=== PATIENT | male | born 1955 ===

== ENCOUNTER 2016-12-09 07:53 | Inpatient (IN) | payer OTHER ==
[2016-11-27 08:41] VITALS: BMI 29.5
[2016-12-09] MEDS ORDERED: Bacitracin 50,000 UNIT in Sodium Chloride 0.9% Irrig 1,000 ML IR SCH (08:20)
[2016-12-09] MEDS ORDERED: ceFAZolin IV 1 gm in Dextrose 0 GM/0 ML BAG IVPB ONE (08:26)
[2016-12-09] MEDS ORDERED: Absorbable Gelatin Sponge Size 100 ONE (08:26)
[2016-12-09] MEDS ORDERED: Bupivacaine-Epi 0.5%-1:200,000 PF Inj ONE ×2 (08:27→14:35)
[2016-12-09] MEDS ORDERED: Thrombin Topical 5,000 IU Spray Kit ONE (08:28)
[2016-12-09] MEDS ORDERED: Propofol 10 mg/ml 1,000 MG/100 ML VIAL ONE ×3 (08:45→12:07)
[2016-12-09] MEDS ORDERED: Remifentanil 1 mg/3 ml Vial IV ONE (08:45)
[2016-12-09] MEDS ORDERED: Midazolam 2 MG/2 ML VIAL ONE (09:04)
[2016-12-09] MEDS ORDERED: Propofol 10 mg/ml Inj (20 ML) ONE ×4 (09:05→13:51)
[2016-12-09] MEDS ORDERED: ePHEDrine 50 mg/ml Inj ONE (09:08)
[2016-12-09] MEDS ORDERED: Succinylcholine Chloride 20 mg/ml Syr (5 ml) IV ONE (09:11)
[2016-12-09] MEDS ORDERED: Lidocaine 4% (Laryng-O-Jet) Kit MM ONE (09:11)
[2016-12-09] MEDS ORDERED: ceFAZolin IV 2 gm in Dextrose 1 GM/50 ML BAG IVPB ONE ×3 (09:34→16:12)
[2016-12-09] MEDS ORDERED: Bupivacaine Liposomal Inj 20 ml INFIL ONE (10:31)
[2016-12-09] MEDS: Vancomycin 1 g Inj ONE ×2 (10:50→14:25)
[2016-12-09 12:34] LABS: HEMATOCRIT 41.4 % (35.0-51.0); MEAN CELL VOLUME 77.8 fL (80.0-94.0); MEAN CORPUSCULAR HEMOGLOBIN 24.8 pg (27.0-31.0); MEAN CORPUSCULAR HGB CONC 31.9 g/dL (33.0-37.0); RED CELL DISTRIBUTION WIDTH 16.7 % (11.5-14.5)
[2016-12-09 12:35] LABS: BASO % 0.5 % (0.0-2.0); EOS % 6.4 % (0.0-4.0); LYMPH % 46.8 % (20.0-40.0); MONO % 3.2 % (0.0-10.0); NRBC % 2.6 % (0.0-2.0)
[2016-12-09 12:36] LABS: EOS # 0.4 K/uL (0.0-0.7); LYMPH # 2.8 K/uL (1.0-4.3); MONO # 0.2 K/uL (0.0-0.8)
[2016-12-09] MEDS ORDERED: HYDROmorphone 0.5 mg/0.5 ml ISec IVP PRN (12:40)
[2016-12-09] MEDS ORDERED: Lactated Ringer's 1,000 ML IV ONE ×2 (13:10→16:30)
[2016-12-09] MEDS ORDERED: Sodium Chloride 0.9% 20 ML IV ONE (14:24)
[2016-12-09] MEDS ORDERED: Bacitracin Ointment 30 GM TUBE ONE (14:37)
[2016-12-09] MEDS ORDERED: Labetalol 25mg/5ml Syringe ONE (14:55)
[2016-12-09] MEDS ORDERED: Naloxone 0.4 mg/ml Inj (Adult) IVP PRN (15:49)
[2016-12-09] MEDS: HYDROmorphone 0.5 mg/0.5 ml ISec IVP PRN ×2 (16:39→16:51)
[2016-12-09] MEDS ORDERED: HYDROmorphone 0.5 mg/0.5 ml ISec IVP ONE (17:06)
--- NOTE | 2016-12-09 17:10 | RAD ---
PROCEDURE: Fluoroscopy up to 1 hr. HISTORY: DISC DISORDER COMPARISON: None TECHNIQUE: Standard protocol for this study/examination. FINDINGS: Total fluoroscopic time (continuous mode) utilized during the procedure: 95.4 seconds. Submitted images from the current procedure: 5.0 IMPRESSION: Less than 1 hr fluoroscopic time utilized during performance of the procedure.
--- NOTE | 2016-12-09 17:12 | CP.PCM.CON ---
<Tonya Cool - Last Filed: 12/09/16 17:04> History of Present Illness - History of Present Illness History of Present Illness: Patient is a 61 year old male s/p L4-S1 fusion for herniated disks L4- L5 with medical history significant for herniated disks hypertension, diabetes mellitus type II, and hypothyroidism. Medicine team consulted for management of diabetes and hypertension per neurosurgeon, Dr. Page. Patient currently in PACU. Review of systems unable to be obtained as patient under the effects of anesthesia. Proper review of systems to be obtained tomorrow. Vitals are currently stable. Home medications were reviewed and plan to restart anti- hypertensive agents. Plan to hold Metformin as patient is still NPO but will start on sliding scale. Former PMD: Dr. Juanpablo Issa ([phone]) Review of Systems - Review of Systems Review of Systems: Unable to be obtained as patient under anesthesia Past Patient History - Past Medical History & Family History Past Medical History?: Yes - Past Social History Smoking Status: Never Smoked - CARDIAC Hx Cardiac Disorders: Yes Hx Hypertension: Yes - HEENT Hx HEENT Problems: Yes Hx Cataracts: Yes - ENDOCRINE/METABOLIC Hx Endocrine Disorders: Yes Hx Diabetes Mellitus Type 2: Yes Hx Hypothyroidism: Yes - MUSCULOSKELETAL/RHEUMATOLOGICAL Hx Musculoskeletal Disorders: Yes Hx Herniated Disk: Yes - SURGICAL HISTORY Hx Surgeries: Yes Hx Cataract Extraction: Yes Other/Comment: right shoulder unspecified - ANESTHESIA Hx Anesthesia: Yes Hx Anesthesia Reactions: No Hx Malignant Hyperthermia: No Has any member of the family had a problem w/ anesthesia?: No Meds Allergies/Adverse Reactions: Allergies Allergy/AdvReac Type Severity Reaction Status Date / Time acetaminophen Allergy RASH Verified 11/27/16 08:42 - Medications Medications: Current Medications Bacitracin (Bacitracin) 0 gm TOP BID CHRI[facility]IANO Hydromorphone HCl (Dilaudid) 0.5 mg IVP Q5M PRN PRN Reason: Pain, moderate (4-7) Last Admin: 12/09/16 16:51 Dose: 0.5 mg Hydromorphone HCl (Dilaudid) 6 mg IVP Q4H PRN; Protocol PRN Reason: Pain, moderate (4-7) Lactated Ringer's (Lactated Ringer's) 1,000 mls @ 125 mls/hr IV .Q8H [facility] Potassium Chloride/Dextrose/Sod Cl (Potassium Chl 20 Meq In D5-1/2ns) 1,000 mls @ 100 mls/hr IV .Q10H [facility] Naloxone HCl (Narcan) 0.1 mg IVP Q2M PRN PRN Reason: Opiate reversal Stop: 12/09/16 18:00 Physical Exam - Constitutional Appears: Non-toxic, No Acute Distress Additional comments: resting comfortably, under anesthesia - Head Exam Head Exam: ATRAUMATIC, NORMAL INSPECTION - ENT Exam ENT Exam: Mucous Membranes Moist - Neck Exam Neck exam: Positive for: Normal Inspection - Respiratory Exam Additional comments: difficult to auscultate as patient is groaning. Appears to be clear to auscultation. - Cardiovascular Exam Cardiovascular Exam: +S1, +S2 - GI/Abdominal Exam GI & Abdominal Exam: Soft - Extremities Exam Extremities exam: Positive for: normal inspection. Negative for: pedal edema - Psychiatric Exam Additional comments: under anesthesia - Skin Skin Exam: Intact, Normal Color Results - Vital Signs Recent Vital Signs: Last Vital Signs Temp 96.5 F L 12/09/16 15:56 Pulse 78 12/09/16 16:26 Resp 10 L 12/09/16 16:26 BP 155/88 H 12/09/16 16:26 Pulse Ox 98 12/09/16 16:26 - Labs Result Diagrams: 12/09/16 11:41 Labs: Laboratory Results - last 24 hr 12/09/16 12/09/16 08:40 11:41 WBC 6.0 RBC 5.32 Hgb 13.2 Hct 41.4 MCV 77.8 L MCH 24.8 L MCHC 31.9 L RDW 16.7 H Plt Count 36 L MPV 7.0 L Neut % (Auto) 43.1 L Lymph % (Auto) 46.8 H [place] % (Auto) 3.2 Eos % (Auto) 6.4 H Baso % (Auto) 0.5 Neut # 2.6 Lymph # 2.8 [place] # 0.2 Eos # 0.4 Baso # 0.0 Blood Type O POSITIVE Antibody Screen Negative Assessment & Plan - Assessment and Plan (Free Text) Assessment: s/p L4-S1 fusion Management per neurosurgeon, Dr. Page Diabetes Mellitus Type II Will hold Metformin Start Insulin Sliding Scale Accuchecks f/u hemoglobin a1c Hypertension Currently normotensive Continue home medications: Lisinopril 20 mg po daily Hydralazine 25 mg po daily Atenolol 50 mg po daily f/u Lipid Panel Hypothyroidism Continue home medication Levothyroxine 75 mcg po daily f/u TSH, free T4 Thrombocytopenia Platelets 36 f/u CBC with differential, Manual platelet count, and peripheral blood smear Hold Anticoagulation Microcytic Anemia likely Iron deficient anemia f/u iron studies Prophylaxis SCDS - Date & Time Date: 12/09/16 Time: 17:19 <Burke Maldonado - Last Filed: 12/10/16 09:46> Meds - Medications Medications: Current Medications Atenolol (Tenormin) 50 mg PO DAILY [facility] Last Admin: 12/10/16 09:39 Dose: 50 mg Bacitracin (Bacitracin) 0 gm TOP BID [facility] Last Admin: 12/10/16 09:39 Dose: 1 applic Hydralazine HCl (Apresoline) 25 mg PO DAILY [facility] Last Admin: 12/10/16 09:39 Dose: 25 mg Hydromorphone HCl (Dilaudid) 0.5 mg IVP Q5M PRN PRN Reason: Pain, moderate (4-7) Last Admin: 12/09/16 16:51 Dose: 0.5 mg Hydromorphone/Sodium Chloride (Dilaudid Room Service Attendant) 6 mg IV Q4H PRN; Protocol PRN Reason: Pain, moderate (4-7) Lactated Ringer's (Lactated Ringer's) 1,000 mls @ 125 mls/hr IV .Q8H [facility] Potassium Chloride/Dextrose/Sod Cl (Potassium Chl 20 Meq In D5-1/2ns) 1,000 mls @ 100 mls/hr IV .Q10H [facility] Last Admin: 12/09/16 20:27 Dose: 100 mls/hr Insulin Aspart (Novolog) 0 unit SC ACHS [facility] PRN Reason: Protocol Last Admin: 12/10/16 08:13 Dose: 1 unit Levothyroxine Sodium (Synthroid) 75 mcg PO DAILY@0630 [facility] Last Admin: 12/10/16 06:38 Dose: 75 mcg Lisinopril (Zestril) 20 mg PO DAILY [facility] Last Admin: 12/10/16 09:39 Dose: 20 mg Pneumococcal Polyvalent Vaccine (Pneumovax 23 Vaccine) 0.5 ml IM .ONCE ONE Stop: 12/11/16 10:01 Potassium Chloride (Potassium Chloride Oral Soln) 40 meq PO Q4H [facility] Stop: 12/10/16 11:01 Last Admin: 12/10/16 07:35 Dose: 40 meq Results - Vital Signs Recent Vital Signs: Last Vital Signs Temp 98.6 F 12/10/16 08:08 Pulse 94 H 12/10/16 08:08 Resp 20 12/10/16 08:08 BP 131/81 12/10/16 08:08 Pulse Ox 96 12/10/16 08:08 - Labs Result Diagrams: 12/10/16 04:47 12/10/16 04:47 Labs: Laboratory Results - last 24 hr 12/09/16 12/09/16 12/09/16 11:41 17:53 17:53 WBC 6.0 RBC 5.32 Hgb 13.2 Hct 41.4 MCV 77.8 L MCH 24.8 L MCHC 31.9 L RDW 16.7 H Plt Count 36 L Manual Plt Count MPV 7.0 L Neut % (Auto) 43.1 L Lymph % (Auto) 46.8 H [place] % (Auto) 3.2 Eos % (Auto) 6.4 H Baso % (Auto) 0.5 Neut # 2.6 Lymph # 2.8 [place] # 0.2 Eos # 0.4 Baso # 0.0 Neutrophils % (Manual) Band Neutrophils % Lymphocytes % (Manual) Monocytes % (Manual) Platelet Estimate Hypochromasia (manual) Anisocytosis (manual) Microcytosis (manual) Ovalocytes PT INR APTT Sodium Potassium Chloride Carbon Dioxide Anion Gap BUN Creatinine Est GFR ( Amer) Est GFR (Non-Af Amer) POC Glucose (mg/dL) Random Glucose Hemoglobin A1c Calcium Phosphorus Magnesium Iron 73 TIBC 275 277 % Saturation 27 25 Ferritin Total Bilirubin AST ALT Alkaline Phosphatase Total Creatine Kinase CK-MB (Mass) Troponin I, Quant Total Protein Albumin Globulin Albumin/Globulin Ratio Triglycerides Cholesterol LDL Cholesterol Direct HDL Cholesterol Free T4 TSH 3rd Generation 12/09/16 12/09/16 12/10/16 17:53 20:57 04:47 WBC 12.5 H D RBC 4.29 L Hgb 10.7 L D Hct 33.4 L MCV 77.7 L MCH 24.9 L MCHC 32.0 L RDW 16.2 H Plt Count 169 D Manual Plt Count 174 MPV 9.8 Neut % (Auto) 83.6 H Lymph % (Auto) 8.3 L [place] % (Auto) 7.9 Eos % (Auto) 0.1 Baso % (Auto) 0.1 Neut # 10.5 H Lymph # 1.0 [place] # 1.0 H Eos # 0.0 Baso # 0.0 Neutrophils % (Manual) 81 H Band Neutrophils % 2 Lymphocytes % (Manual) 8 L Monocytes % (Manual) 9 Platelet Estimate Normal Hypochromasia (manual) Slight Anisocytosis (manual) Slight Microcytosis (manual) Slight Ovalocytes Slight PT INR APTT Sodium 141 Potassium 2.8 L Chloride 99 Carbon Dioxide 31 H Anion Gap 14 BUN 10 Creatinine 0.9 Est GFR ( Amer) > 60 Est GFR (Non-Af Amer) > 60 POC Glucose (mg/dL) 164 H Random Glucose 138 H Hemoglobin A1c Calcium 7.6 L Phosphorus Magnesium Iron TIBC % Saturation Ferritin 47.7 Total Bilirubin 0.7 AST 56 ALT 17 L Alkaline Phosphatase 69 Total Creatine Kinase CK-MB (Mass) Troponin I, Quant Total Protein 6.8 Albumin 3.7 Globulin 3.1 Albumin/Globulin Ratio 1.2 Triglycerides Cholesterol LDL Cholesterol Direct HDL Cholesterol Free T4 TSH 3rd Generation 12/10/16 12/10/16 12/10/16 04:47 04:47 04:47 WBC RBC Hgb Hct MCV MCH MCHC RDW Plt Count Manual Plt Count MPV Neut % (Auto) Lymph % (Auto) [place] % (Auto) Eos % (Auto) Baso % (Auto) Neut # Lymph # [place] # Eos # Baso # Neutrophils % (Manual) Band Neutrophils % Lymphocytes % (Manual) Monocytes % (Manual) Platelet Estimate Hypochromasia (manual) Anisocytosis (manual) Microcytosis (manual) Ovalocytes PT INR APTT Sodium 139 Potassium 3.1 L Chloride 98 Carbon Dioxide 28 Anion Gap 16 BUN 11 Creatinine 1.0 Est GFR ( Amer) > 60 Est GFR (Non-Af Amer) > 60 POC Glucose (mg/dL) Random Glucose 184 H Hemoglobin A1c 6.6 H Calcium 7.5 L Phosphorus 3.0 Magnesium 1.5 L Iron TIBC % Saturation Ferritin Total Bilirubin 1.0 AST 117 H D ALT 31 Alkaline Phosphatase 57 Total Creatine Kinase CK-MB (Mass) Troponin I, Quant Total Protein 6.6 Albumin 3.5 Globulin 3.1 Albumin/Globulin Ratio 1.1 Triglycerides 116 Cholesterol 146 LDL Cholesterol Direct 65 HDL Cholesterol 28 L Free T4 1.38 TSH 3rd Generation 0.39 L 12/10/16 12/10/16 12/10/16 04:47 06:29 08:39 WBC RBC Hgb Hct MCV MCH MCHC RDW Plt Count Manual Plt Count MPV Neut % (Auto) Lymph % (Auto) [place] % (Auto) Eos % (Auto) Baso % (Auto) Neut # Lymph # [place] # Eos # Baso # Neutrophils % (Manual) Band Neutrophils % Lymphocytes % (Manual) Monocytes % (Manual) Platelet Estimate Hypochromasia (manual) Anisocytosis (manual) Microcytosis (manual) Ovalocytes PT 13.0 H INR 1.2 APTT 32 Sodium Potassium Chloride Carbon Dioxide Anion Gap BUN Creatinine Est GFR ( Amer) Est GFR (Non-Af Amer) POC Glucose (mg/dL) 170 H Random Glucose Hemoglobin A1c Calcium Phosphorus Magnesium Iron TIBC % Saturation Ferritin Total Bilirubin AST ALT Alkaline Phosphatase Total Creatine Kinase 5516 H CK-MB (Mass) 40.5 H Troponin I, Quant < 0.0120 Total Protein Albumin Globulin Albumin/Globulin Ratio Triglycerides Cholesterol LDL Cholesterol Direct HDL Cholesterol Free T4 TSH 3rd Generation Attending/Attestation - Attestation I have personally seen and examined this patient.: Yes I have fully participated in the care of the patient.: Yes I have reviewed all pertinent clinical information: Yes
[2016-12-09 18:19] LABS: CHLORIDE 99 mmol/L (98-107); POTASSIUM 2.8 mmol/L (3.6-5.2); SODIUM 141 mmol/L (132-148)
[2016-12-09 18:21] LABS: BILIRUBIN,TOTAL 0.7 mg/dL (0.2-1.3); CARBON DIOXIDE 31 mmol/L (22-30); GFR AFRICAN-AMERICAN > 60
[2016-12-09 18:22] LABS: ALB/GLOB RATIO 1.2 (1.0-2.1); ALKALINE PHOSPHATASE 69 U/L (38-126); ALT/SGPT 17 U/L (21-72); AST/SGOT 56 U/L (17-59); BLOOD UREA NITROGEN 10 mg/dL (9-20); CALCIUM 7.6 mg/dl (8.6-10.4); GLUCOSE,RANDOM 138 mg/dL (75-110); IRON 73 ug/dL (49-181); TOTAL PROTEIN 6.8 g/dL (6.3-8.3)
[2016-12-09] MEDS: Bacitracin Ointment 30 GM TUBE TOP SCH (19:00)
[2016-12-09] MEDS: Potassium Ch 20mEq in D5-1/2NS 1,000 ML IV SCH (20:27)
[2016-12-09] MEDS: (Novolog) Insulin Aspart, Recombinant 100 u/ml 10 ml vial SC SCH (22:01)
[2016-12-10] MEDS ORDERED: Potassium Chloride 20 mEq ER Tab PO SCH ×2 (02:52→10:00)
[2016-12-10] MEDS ORDERED: Potassium Chloride 20 mEq/15 ml LIQ UD PO SCH (03:00)
[2016-12-10] MEDS: Potassium Chloride 20 mEq/15 ml LIQ UD PO SCH ×2 (03:22→07:35)
[2016-12-10 04:53] LABS: BASO % 0.1 % (0.0-2.0); EOS % 0.1 % (0.0-4.0); HEMATOCRIT 33.4 % (35.0-51.0); LYMPH % 8.3 % (20.0-40.0); MEAN CELL VOLUME 77.7 fL (80.0-94.0); MEAN CORPUSCULAR HEMOGLOBIN 24.9 pg (27.0-31.0); MEAN PLATELET VOLUME 9.8 fL (7.2-11.7); MONO % 7.9 % (0.0-10.0); PLATELET COUNT 169 K/uL (130-400); RED CELL DISTRIBUTION WIDTH 16.2 % (11.5-14.5); WHITE BLOOD COUNT 12.5 K/uL (4.8-10.8)
[2016-12-10 04:58] LABS: INR 1.2
[2016-12-10 05:25] LABS: CHLORIDE 98 mmol/L (98-107); POTASSIUM 3.1 mmol/L (3.6-5.2); SODIUM 139 mmol/L (132-148)
[2016-12-10 05:27] LABS: AST/SGOT 117 U/L (17-59); CARBON DIOXIDE 28 mmol/L (22-30); GFR AFRICAN-AMERICAN > 60
[2016-12-10 05:28] LABS: ALB/GLOB RATIO 1.1 (1.0-2.1); ALKALINE PHOSPHATASE 57 U/L (38-126); ALT/SGPT 31 U/L (21-72); BLOOD UREA NITROGEN 11 mg/dL (9-20); CALCIUM 7.5 mg/dl (8.6-10.4); GLUCOSE,RANDOM 184 mg/dL (75-110); TOTAL PROTEIN 6.6 g/dL (6.3-8.3)
[2016-12-10 05:29] LABS: MAGNESIUM 1.5 mg/dL (1.6-2.3)
[2016-12-10 05:59] LABS: THYROID STIMULATING HORMONE 0.39 mIU/L (0.46-4.68)
[2016-12-10 06:12] LABS: CHOLESTEROL 146 mg/dL (0-199)
[2016-12-10 06:13] LABS: NEUTROPHIL 81 % (50-75); TOTAL CELLS COUNTED 100
[2016-12-10] MEDS: Magnesium Sulfate 1 gm in D5W 1 GM/100 ML BAG IVPB SCH ×2 (06:34→07:35)
[2016-12-10] MEDS: Levothyroxine 75 MCG TAB PO SCH (06:38)
[2016-12-10] MEDS: (Novolog) Insulin Aspart, Recombinant 100 u/ml 10 ml vial SC SCH ×4 (08:13→21:43)
[2016-12-10] MEDS: Bacitracin Ointment 30 GM TUBE TOP SCH ×2 (09:39→17:28)
--- NOTE | 2016-12-10 09:44 | CT ---
PROCEDURE: CT HEAD WITHOUT CONTRAST. HISTORY: numbness/tingling COMPARISON: None available. TECHNIQUE: Axial computed tomography images were obtained through the head/brain without intravenous contrast. Radiation dose: Total exam DLP = 1009 mGy-cm. This CT exam was performed using one or more of the following dose reduction techniques: Automated exposure control, adjustment of the mA and/or kV according to patient size, and/or use of iterative reconstruction technique. FINDINGS: HEMORRHAGE: No intracranial hemorrhage. BRAIN: No mass effect or edema. Scattered focal lucencies in the subcortical and periventricular white matter suggestive for chronic microvascular ischemic change. VENTRICLES: Unremarkable. No hydrocephalus. CALVARIUM: Unremarkable. PARANASAL SINUSES: Mucosal thickening and opacification seen throughout the paranasal sinuses. Fluid level in the left maxillary sinus. Mucosal retention cyst and or polyp at the lateral wall of the right maxillary sinus measuring 1 centimeter. MASTOID AIR CELLS: Unremarkable as visualized. No inflammatory changes. OTHER FINDINGS: Intracranial arterial calcifications. Mild soft tissue swelling overlying the right frontal cranium. IMPRESSION: Chronic microvascular ischemic change. Sinus mucosal disease. If paresthesias persists, correlation with MRI may be helpful.
[2016-12-10] MEDS: Potassium Ch 20mEq in D5-1/2NS 1,000 ML IV SCH ×2 (09:46→19:41)
[2016-12-10] MEDS ORDERED: HYDROmorphone 1 mg/ml ISec IVP STA (10:00)
[2016-12-10] MEDS ORDERED: oxyCODONE 10 mg Immediate Release Tab PO PRN (10:30)
--- NOTE | 2016-12-10 11:06 | OP ---
PROCEDURE DATE: 12/10/2016 PREOPERATIVE DIAGNOSES: Disk derangement L4-L5, L5-S1 with herniated disks, central herniated disk L 4-L5. POSTOPERATIVE DIAGNOSIS: Disk derangement L4-L5, L5-S1 with herniated disks, central herniated disk L4-L5. OPERATION: 1. Posterior lumbar interbody fusion L4-5, L5-S1. 2. Posterolateral fusion L4-S1. 3. Use of segmental spinal instrumentation. 4. Use of intervertebral devices. 5. Use of autograft by means of bone marrow aspiration. SURGEONS: Dr. Bales and Dr. Page. ANESTHESIA: General endotracheal tube intubation. PROCEDURE: The patient was brought to the operating room and general anesthesia was achieved. Intra venous antibiotics were administered and spinal cord monitoring leads were placed throughout the benita ent's body. Realtime monitoring was done by a life support technician in the room. Remote monitoring done by a p thiensician as well. Sequential compression boots are placed to each of the patient's legs. After the antibiotics were administered, a Bowden catheter was inserted. The patient was then gently transferre d onto the operating table and placed prone on a Asher frame, keeping his abdomen free from pressure anteriorly. Care was taken to protect the elbows and knees from pressure points. A Steri-Drape was used to seal off the patient's perineal region from the operative field and his back was sterilely s crubbed, prepped, and draped. The level of incision was noted under fluoroscopy and infiltrated with lidocaine with epinephrine. An incision was made sharply in the midline, taken down to subcutaneous tissue using sharp and blunt dissection. Hemostasis achieved using electrocautery. The fascia was divided and stripped laterally off the spinous processes and lamina out to the level of the facet kevin nts and transverse processes at L4 and L5 as well as the sacral ala on each side. Soft tissue attach ments were cleared using electrocautery and Nash elevator such that we could identify the pars at eac h level on each side. Confirmatory fluoroscopic views were taken and they verified that we were at t he appropriate levels. A Alberto bone cutter and Lemanasaell rongeur were then used to remove the spinou s processes and thin down the lamina and the laminectomy carried out in a caudal to cephalad fashion, first in the midline and then out laterally to each side. A marked amount of thickened ligamentum, especially in the lateral recesses. Thecal sac was a little difficult to retract at the L4-L5 level secondary to large central herniated disk. Laminectomy was carried out laterally at the L4-L5 and L5 -S1 disk levels until we could safely pass a broach, indicative of enough room to pass the interverte bral cages later on. Hemostasis achieved with bipolar cautery as well as thrombinated Gelfoam powder . Needle was placed in the disk space and again it was verified we were at the appropriate levels. At that time, a trocar was placed in the posterior right ilium and 120 mL of bone marrow aspirate was obtained. This was sterilely passed off to the life support technician, who processed this through the harvest s ystem and returned the collected mesenchymal stem cells back to the OR table. The stem cells were th en used to soak pieces of Conform strips as well as processed through the IC chamber. The patient's laminar bone along with the IC chamber bone and Optium putty were used to create a bone grafting subs trate. Thrombinated Gelfoam powder was used for hemostasis at the donor site. We then went back to the midline in order to perform the interbody fusion. The thecal sac was gently retracted and the annulus on the left side L5-S1 was incised. Disk material was removed with a pitu itary rongeur and endplate stone up to and including a size 11. Ring and spoon curettes were used to remove any remaining tissue from the endplates. In similar fashion, the annulus was incised on th e right side and any remaining disk material removed with the endplate stone up to and including si ze 11 along with a pituitary rongeur and the ring and spoon curettes. Bone grafting substrate was th en packed into the disk space and a graft packed 9 x 11 cage was tamped into place and countersunk. We went back to the left side and some further graft material along with the marrow soaked pieces of Conform sponge were packed in and another 9 x [address] and countersunk. We then moved up to the L4-L5 level. The annulus was incised and disk material removed. The down-an gled curette was used to tamp down the large central herniated disk and once that was done and that d isk material removed, the thecal sac could be retracted much more freely. Endplate stone were used up to and including a size 13. Pituitary rongeur along with the ring and spoon curettes were used t o remove any remaining tissue from the left side. The annulus was then incised on the right side and again, the endplate stone up to and including a size 13 along with the ring and spoon curettes wer e used and the disk space was emptied. Bone grafting substrate along with the marrow soaked Conform sponges were packed into the disk space and a 9 x 13 cage packed with the graft was tamped into place . We then moved back to the left side. More graft substrate along with the conformed cubes were pac ked into the disk space and another 9 x [address] and countersunk. Visually, everyth ing appeared to be in good position. Hemostasis achieved with bipolar cautery and thrombinated Gelfo am powder. We then proceeded with the posterolateral fusion. Stimulation was done of the nerve roots to make ce rtain we had baseline stimulation and laterality correct with monitoring. A high speed drill was use d to decorticate the L4-L5 and L5-S1 facet joints as well as the transverse processes of L4 and L5 on each side, as well as the sacral ala. Under fluoroscopic guidance, the entry point for the left L4 pedicle was created with the drill and the gearshift tool used to create the channel through the pedi dick. Bone integrity was confirmed and a 6.0 mm x 45 mm Expedium screw was inserted. In similar [facility] ion, on the right side, under fluoroscopic guidance, the high speed drill was used to create the open ing with the gearshift tool used to create the channel. Once the bone integrity was confirmed with a ball tipped probe, a 45 x 6.0 screw was inserted. Stimulation of the gearshift tool on each side as well as the shank and top of each screw revealed no electrophysiologic abnormalities. We then moved down the L5 level, where the drill was used to locate the entry point under fluoroscopy on the right side and the gearshift tool then created the path through the pedicle. Bone integrity again was confirmed and another 6.0 mm x 45 mm Expedium screw inserted. On the left side, again unde r fluoroscopic guidance, the drill, the gearshift tool, and the ball tipped probe were all used to cr eate the pedicular channel and another 45 mm x 6.0 mm screw inserted. Again, stimulation on each raman e revealed no abnormalities. We then moved down to the sacrum for the final pair of screw placements. The proper drill level for the entry point was noted under fluoroscopy and then lined up with the previously placed 2 screws on each side. Gearshift tool used to create the channel for the screw and the bone integrity confirmed and a 7 mm x 40 mm screw inserted on the left and a 7 mm x 35 mm Expedium screw placed on the right. Again, stimulation revealed no electrophysiologic abnormalities. The 3 screws were connected with a 75 mm precut lordotic mimi on the left and a 65 mm precut lordotic mimi on the right. These were appr opriately tightened and torqued. The midline was inspected for any debris and thoroughly irrigated. Hemostasis achieved with bipolar cautery as well as thrombinated Gelfoam powder. Due to the placeme nt of the thecal sac, we were unable to place a crosslink for fear of eroding into the sac itself. T he remaining strips of marrow soaked Conform sponges and the rest of the bone grafting substrate was then packed laterally to bridge the decorticated transverse processes as well as the sacral ala on ea ch side lateral to the hardware. The wound was then closed in layers with interrupted sutures of 0 V icryl for the muscle and the fascia. The subcutaneous tissue was copiously irrigated with antibiotic solution. Twenty mL of Exparel diluted with 20 mL of saline as well as 30 mL of 0.5% Marcaine was i njected in the paraspinal tissues to help with postoperative pain relief. Vancomycin powder was plac ed in the subcutaneous tissue to help prevent any postoperative wound infection, given the patient's diabetes. The subcutaneous tissue was then approximated with interrupted sutures of 2-0 Vicryl and t he skin was closed with lucas. Bacitracin ointment and a sterile dressing were applied. The patie nt was gently transferred back onto his bed in the supine position. He was awakened and extubated. He was taken to recovery room in stable condition having tolerated the procedure well. Estimated blo od loss is 600 mL. He received 3200 mL of crystalloid during the surgery as well as 375 mL back from the Cell Saver. He had a urine output of 900 mL over the course of the operation. No permanent sandro ctrophysiologic abnormalities were noted at the completion of the case. Mahad Bales MD cc: [id number] TT: 12/10/2016 11:05:52 en
--- NOTE | 2016-12-10 12:08 | PN ---
DATE: 12/10/2016 Postop day 1, surprisingly, the patient is not complaining much about his back or his leg. He is com plaining of severe pain involving the right neck and shoulder area. He states when he has a pillow o r blanket up against the right side of his neck, he is okay, but without that pressure, he feels what he describes as pain and numbness that radiates down the right chest and his right arm. Denies any weakness. PHYSICAL EXAMINATION: EXTREMITIES: He does have excellent 5/5 strength in all 4 extremities with particular attention to t he right arm. No weakness at all, and does not seem to have any overt decreased sensitivity to sensa tion. He is complaining about a little dysesthesias in the right lateral thigh, which I explained wo uld be typical of the procedure he had. He may have some muscle spasm and pain from positioning, but otherwise, nothing of significance. I t old him we are going to have him seen by physiotherapy and out of bed today, hopefully, attempt to wa lk. We will have anesthesia try to upgrade his [employer]. He is already eating breakfast and doing well. Matthew Page MD cc: [id number] TT: 12/10/2016 12:07:51 Confirmation # [id number] Dictation # [id number]
--- NOTE | 2016-12-10 18:23 | CP.PCM.PN ---
<RobTonya nunez - Last Filed: 12/10/16 18:03> Subjective - Date & Time of Evaluation Date of Evaluation: 12/10/16 Time of Evaluation: 18:03 - Subjective Subjective: Patient seen and examined at bedside. Patient alert today and able to get proper history and review of systems. Patient states he has a history of diabetes mellitus type II, hypertension, hypothyroidism and anemia (unknown characterization). Patient reports in 2012 he had an accident at his job by which he fell off the top of a ladder onto his right side. Patient states he needed multiple surgeries for his right upper extremity and since then had chronic back pain. Patient admits to a family history of diabetes mellitus, hypothyroidism and hypertension. He states his father from a heart attack he suffered at age 87. Patient is a never smoker and also denies alcohol and illicit drug use. Since surgery, patient has been complaining of pain to his right neck which appears to be positional. He also complains of numbness to his right upper and lower extremity. Patient denies change to sensation of affected extremities and strength is intact. He states the pain is relieved with his head propped onto a pillow. He explains that when re-positioned he has chest pain and breathing becomes labored. Patient also notes right lateral thigh dysesthesia. He reports anxiety related to symptoms he is experiencing. Patient otherwise is comfortable and denies other symptoms. He is tolerating diet well and denies abdominal pain, nausea, and vomiting. Patient denies passing flatus or bowel movement. Objective - Vital Signs/Intake and Output Vital Signs (last 24 hours): Temp Pulse Resp BP Pulse Ox 99.2 F 88 18 124/72 97 12/10/16 15:10 12/10/16 16:23 12/10/16 15:10 12/10/16 15:10 12/10/16 16:23 Intake and Output: 12/10/16 12/10/16 06:59 18:59 Intake Total 1830 Output Total 1500 900 Balance 330 -900 - Medications Medications: Current Medications Atenolol (Tenormin) 50 mg PO DAILY [facility] Last Admin: 12/10/16 09:39 Dose: 50 mg Bacitracin (Bacitracin) 0 gm TOP BID [facility] Last Admin: 12/10/16 17:28 Dose: 1 applic Hydralazine HCl (Apresoline) 25 mg PO DAILY [facility] Last Admin: 12/10/16 09:39 Dose: 25 mg Hydromorphone HCl (Dilaudid) 0.5 mg IVP Q5M PRN PRN Reason: Pain, moderate (4-7) Last Admin: 12/09/16 16:51 Dose: 0.5 mg Hydromorphone/Sodium Chloride (Dilaudid Tufter Hand) 6 mg IV Q4H PRN; Protocol PRN Reason: Pain, moderate (4-7) Lactated Ringer's (Lactated Ringer's) 1,000 mls @ 125 mls/hr IV .Q8H [facility] Potassium Chloride/Dextrose/Sod Cl (Potassium Chl 20 Meq In D5-1/2ns) 1,000 mls @ 100 mls/hr IV .Q10H [facility] Last Admin: 12/10/16 09:46 Dose: 100 mls/hr Insulin Aspart (Novolog) 0 unit SC ACHS [facility] PRN Reason: Protocol Levothyroxine Sodium (Synthroid) 75 mcg PO DAILY@0630 [facility] Last Admin: 12/10/16 06:38 Dose: 75 mcg Lisinopril (Zestril) 20 mg PO DAILY [facility] Last Admin: 12/10/16 09:39 Dose: 20 mg Oxycodone HCl (Oxycodone Immediate Release Tab) 10 mg PO Q4H PRN PRN Reason: Pain, moderate (4-7) Pantoprazole Sodium (Protonix Ec Tab) 40 mg PO DAILY [facility] Pneumococcal Polyvalent Vaccine (Pneumovax 23 Vaccine) 0.5 ml IM .ONCE ONE Stop: 12/11/16 10:01 - Labs Labs: 12/10/16 04:47 12/10/16 04:47 PT 13.0 SECONDS (9.7-12.2) H 12/10/16 04:47 INR 1.2 12/10/16 04:47 APTT 32 SECONDS (21-34) 12/10/16 04:47 - Constitutional Appears: Non-toxic, No Acute Distress - Head Exam Head Exam: ATRAUMATIC, NORMAL INSPECTION, NORMOCEPHALIC - Eye Exam Eye Exam: EOMI, Normal appearance, PERRL - ENT Exam ENT Exam: Mucous Membranes Moist - Neck Exam Neck Exam: Tenderness Additional comments: tenderness to right lateral neck - Respiratory Exam Respiratory Exam: Clear to Ausculation Bilateral, NORMAL BREATHING PATTERN. absent: Rales, Rhonchi, Wheezes - Cardiovascular Exam Cardiovascular Exam: +S1, +S2. absent: Tachycardia, Murmur - GI/Abdominal Exam GI & Abdominal Exam: Soft, Normal Bowel Sounds. absent: Distended, Firm, Tenderness - Extremities Exam Extremities Exam: Normal Inspection. absent: Tenderness - Neurological Exam Neurological Exam: Alert, Awake, Oriented x3 Neuro motor strength exam: Left Upper Extremity: 5, Right Upper Extremity: 5, Left Lower Extremity: 5, Right Lower Extremity: 5 Additional comments: sensation intact to bilateral upper and lower extremities - Psychiatric Exam Psychiatric exam: Normal Affect, Normal Mood - Skin Skin Exam: Intact, Normal Color Assessment and Plan - Assessment and Plan (Free Text) Assessment: s/p L4-S1 fusion Management per neurosurgeon, Dr. Page Chest Pain MARLYN x3 ordered CPK 5516, CK-MB 40.5 (elevated in light of surgery), Troponin I <0.0120 CPK 31.2, CK-MB 5631, Troponin I <0.0120 f/u 3rd MARLYN Electrolyte Abnormality Hypokalemia 2.8 Magnesium 1.5 Repleted with kdur 40 meq po stat and kdur 40 meq po Q4H Repleted with Magnesium Sulfate 1 gm IVPB Q30M x 2 bags f/u electrolytes Diabetes Mellitus Type II Continue to hold Metformin Continue Insulin Sliding Scale - changed to high protocol Accuchecks hemoglobin a1c 6.6 Hypertension Currently normotensive Continue home medications: Lisinopril 20 mg po daily Hydralazine 25 mg po daily Atenolol 50 mg po daily Lipid Panel: Triglycerides 116, Cholesterol 146, LDL Cholesterol Direct 65, HDL 28 Hypothyroidism Continue home medication Levothyroxine 75 mcg po daily TSH 0.39, free T4 1.38 Thrombocytopenia Platelets improved to 169. Likely due to lab error Platelets 36 CBC with differential, Manual platelet count, and peripheral blood smear Hold Anticoagulation for 3 days including aspirin per Dr. Page Microcytic Anemia Iron studies normal Recommend patient have outpatient workup with [employer] for further characterization of microcytic anemia ie. electrophoresis Prophylaxis SCDS Anti-coagulation to be held in light of surgery Protonix 40 mg po daily <Burke Maldonado - Last Filed: 12/11/16 09:59> Objective - Vital Signs/Intake and Output Vital Signs (last 24 hours): Temp Pulse Resp BP Pulse Ox 98.4 F 88 20 114/67 99 12/11/16 07:00 12/11/16 07:00 12/11/16 07:00 12/11/16 07:00 12/11/16 07:00 Intake and Output: 12/11/16 12/11/16 06:59 18:59 Intake Total 2260 Output Total 1000 Balance 1260 - Medications Medications: Current Medications Atenolol (Tenormin) 50 mg PO DAILY [facility] Last Admin: 12/10/16 09:39 Dose: 50 mg Bacitracin (Bacitracin) 0 gm TOP BID [facility] Last Admin: 12/10/16 17:28 Dose: 1 applic Hydralazine HCl (Apresoline) 25 mg PO DAILY [facility] Last Admin: 12/10/16 09:39 Dose: 25 mg Hydromorphone HCl (Dilaudid) 0.5 mg IVP Q5M PRN PRN Reason: Pain, moderate (4-7) Last Admin: 12/09/16 16:51 Dose: 0.5 mg Hydromorphone/Sodium Chloride (Dilaudid Tufter Hand) 6 mg IV Q4H PRN; Protocol PRN Reason: Pain, moderate (4-7) Last Admin: 12/10/16 23:49 Dose: 6 mg Lactated Ringer's (Lactated Ringer's) 1,000 mls @ 125 mls/hr IV .Q8H [facility] Last Admin: 12/11/16 06:23 Dose: Not Given Potassium Chloride/Dextrose/Sod Cl (Potassium Chl 20 Meq In D5-1/2ns) 1,000 mls @ 100 mls/hr IV .Q10H [facility] Last Admin: 12/10/16 19:41 Dose: 100 mls/hr Insulin Aspart (Novolog) 0 unit SC ACHS [facility] PRN Reason: Protocol Last Admin: 12/11/16 08:29 Dose: 2 unit Levothyroxine Sodium (Synthroid) 75 mcg PO DAILY@0630 [facility] Last Admin: 12/11/16 07:09 Dose: 75 mcg Lisinopril (Zestril) 20 mg PO DAILY [facility] Last Admin: 12/10/16 09:39 Dose: 20 mg Metformin HCl (Glucophage) 500 mg PO DAILY [facility] Oxycodone HCl (Oxycodone Immediate Release Tab) 10 mg PO Q4H PRN PRN Reason: Pain, moderate (4-7) Pantoprazole Sodium (Protonix Ec Tab) 40 mg PO DAILY [facility] Pneumococcal Polyvalent Vaccine (Pneumovax 23 Vaccine) 0.5 ml IM .ONCE ONE Stop: 12/11/16 10:01 Potassium Chloride (K-Dur 20 Meq Er Tab) 40 meq PO ONCE ONE Stop: 12/11/16 20:01 - Labs Labs: 12/10/16 04:47 12/10/16 18:31 PT 13.0 SECONDS (9.7-12.2) H 12/10/16 04:47 INR 1.2 12/10/16 04:47 APTT 32 SECONDS (21-34) 12/10/16 04:47 Attending/Attestation - Attestation I have personally seen and examined this patient.: Yes I have fully participated in the care of the patient.: Yes I have reviewed all pertinent clinical information, including history, physical exam and plan: Yes Notes (Text): 12/11/16 09:58 This patient was seen and examined at 11:55 AM 12/10/16 History, Physical, Assessment and Plan were thoroughly gone over with the Chief Crew Scheduler. Medicne Team please coordinate with Neurosurgery as to when anticoagulation can be started: as per Dr. Page in 3 days from 12/10/16. Burke Maldonado D.O.
[2016-12-10 18:41] LABS: POTASSIUM 3.3 mmol/L (3.6-5.2)
[2016-12-10 18:44] LABS: MAGNESIUM 2.3 mg/dL (1.6-2.3)
--- NOTE | 2016-12-10 18:58 | OP ---
PROCEDURE DATE: 12/09/2016 PREOPERATIVE DIAGNOSES: Lumbar disk derangements with herniation L4-L5, L5-S1. POSTOPERATIVE DIAGNOSES: Lumbar disk derangements with herniation L4-L5, L5-S1. PROCEDURE: L4-L5 and L5-S1 decompression diskectomy, interbody fusion, segmental pedicle screw fixat ion and posterolateral fusion with iliac autograft. SURGEON: Matthew Page MD COSURGEON: Mahad Bales MD ANESTHESIA: General endotracheal. ESTIMATED BLOOD LOSS: 600 mL, 350 mL returned via [facility] [employer]. COMPLICATIONS: None. JUSTIFICATION: The patient is status post an on-the-job injury, ever since when he has been sufferin g with severe low back pain with radicular component. He failed a rather extensive conservative zac tment. MRI documented a significant herniation and annular tear at L4-L5, marked collapse and forami nal stenosis at L5-S1. The patient was offered operative intervention via diskectomy, interbody fusi on and segmental fixation. The nature of the procedure, the rationale behind it, alternatives, poten tial risks, complications, realistic chances of success, recovery time discussed with him at length. All his questions were answered. He fully understood all the above and elected to proceed. DESCRIPTION OF PROCEDURE: The patient taken to the operating room. He was hooked up to neurophysiol ogical monitoring. He was carefully intubated, anesthetized. He was placed on the OR table in a pro ne position on a Asher frame. Care was taken to protect his face, eyes, endotracheal tube and all b daniel prominences. The entire low back was then scrubbed with acetone scrub, painted and draped in the usual sterile manner. Incision localized with lateral fluoroscopy, traced out overlying the spinous processes of L3 through the sacrum. The incision was made with a 10 blade knife, carried down to the level of the fascia. The Bovie caut vale was used to incise the fascia, strip the paraspinal muscles off the spinous processes and lamina of L4, L5 and the sacrum. Deep self-retaining retractors were placed. The exposure was widened out laterally bilaterally to expose the L4-L5 transverse process and the sacral ala. Bleeding controlled throughout with Bovie and the bipolar cautery as well as thrombinated Gelfoam. When exposure was complete and radiographically confirmed to be the correct levels, attention was tur mone to harvestation. A 5 gauge trocar was placed directly through the right superior posterior iliac crest. Approximately 120 mL of bone marrow were aspirated. This was then spun down to obtain the b one marrow mesenchymal cells, were then used to impregnate hydroxyapatite collagen sponges and additi onal allograft and autograft. At this point, the decompression was begun. A Alberto rongeur was used to remove the S1, L5 and then the inferior L4 spinous process. A Leksell rongeur was used to thin down the lamina. Central chetan ectomy begun at the L5-S1 interspace. Various Kerrison rongeurs were used to remove the lamina, deco mpress the thecal sac. This was carried off all the way through the midpoint of the L4 lamina. Then , the exposure was widened out laterally bilaterally. Generous medial facetectomies were performed u sing a combination of the high speed drill and various Kerrisons. Foraminotomies then performed late rally bilaterally of the exiting L4, L5 and S1 nerve roots. At this point, we began the diskectomy at the L5-S1 level. The left S1 nerve root gently retracted m edially. The disk was then incised, grossly emptied of disk material with the use of pituitary ronge urs and then sequential stone 9-12 mm were used. At 12 mm, we had significant distraction of the f acet and widening of the disk space seen on x-ray that we decided to not go further with a 13 gauge, even though the vertebral bodies in this particular individual were quite scalloped. However, we tho ught that the 13 mm cage would be too high. We then used large curettes to decorticate the end plate s above and below. We removed all lateral disk material with an upbiting curette. A central herniat ion was forced down anteriorly with the use of a downbiting curette and removed with straight and upb iting pituitary rongeurs. This identical procedure was performed on the right side, after which we packed bone grafting materia l, which included chopped up products of decompression, additional allograft, marrow impregnated spon ges into the disk space. We then tapped a 9 mm x 13 mm carbon fiber fusion cage filled with bone gra fting material, tapped it in until it was well seated and countersunk several millimeters. The ident ical bone grafting and placement of the implant was performed back on the left side and visual inspec tion and lateral fluoroscopy confirmed excellent position of both of these cages. The identical procedure was then performed at the L4-L5 level, again starting on the left side, gentl y retracting the L5 nerve root medially. The disk was incised, emptied of disk material. This time, 9-13 mm stone were used. We decided to go with a 13 x 9 implant at this level. Again, the endpla king above and below decorticated. This level had a very significant, very large central focal hernia tion which was removed, again using a large downbiting curette forcing the herniation forward into th e disk space, then removing it with straight and upbiting pituitary rongeurs. This identical procedu re was then performed back on the right side, after which bone grafting material was packed into the space followed by the placement of the 9 mm x 13 mm cage and finally the same cage and bone grafting material was placed on the left side. Again, visual inspection and lateral fluoroscopy confirmed exc ellent countersinking and good position of both cages. At this point, we decorticated the lateral gutters, which included the transverse processes, the sacr al ala and the lateral pars and facets on both sides and then turned our attention to placement of pe dicular screws. The technique was used of visually and fluoroscopically identifying the pedicular entrance, drilling through the cortical bone, then passing a gearshift down the barrel of the pedicle into the vertebral body and placing the appropriate size screw. Additionally, the gearshift and the screws were stimul ated with electrical current to ensure there was no evidence of electrophysiological breach of the pe dicle. Using this technique, a 6.0 mm diameter, 45 mm length placed bilaterally at L4, the same scre ws placed at L5 and lastly, 7.0 diameter 40 and 35 mm length screws placed at S1. No screw elicited any EMG activity with less than a current level of 20 milliamps. Finally, AP and lateral fluoroscopy confirmed excellent position of all 6 of these screws. We then placed the appropriate size titanium locking mimi into the screw head receptacles on each side , placed 3 locking nuts and torque wrenched them and tightened them. We then performed compression, first tightening S1 screw and compressing the L5 screw against it and then compressing the L4 screw a gainst the L5 and tightening it on both sides. We attempted to place a crosslink, but because of the prominence and fullness of the thecal sac, the crosslink would rub against it and we decided it woul d be better left unplaced. We then packed all remaining bone grafting material into the lateral gutters on both sides. Final x- ray, AP and lateral, confirmed superb position of the entire construct. The retractors were withdrawn. Some small muscle bleeding points coagulated with bipolar cautery. A layer of thrombinated powdered Gelfoam placed in the peridural space. The muscle reapproximated usi ng interrupted 0 Vicryl, the fascia closed using a tight interrupted 0 Vicryl stitch, the wound copio usly irrigated with antibiotic solution. A layer of vancomycin powder placed in the suprafascial com partment as the patient was a diabetic. The subQ closed in 2 separate layers of interrupted inverted 2-0 Vicryl, the skin closed with lucas. Bacitracin and a heavy dressing was placed. The patient turned back onto a supine position. He was extubated without difficulty, noted to be mov ing both lower extremities with good strength on his way to the recovery room. All counts were corre ct. Neurophysiological monitoring including somatosensory evoked potentials and free run EMG remaine d stable over the procedure. There were no complications. Matthew Page MD cc: [id number] TT: 12/10/2016 18:57:54 en
[2016-12-10 19:14] VITALS: RESP 20
[2016-12-11] MEDS: Lactated Ringer's 1,000 ML IV SCH ×2 (06:23→15:26)
[2016-12-11] MEDS: Levothyroxine 75 MCG TAB PO SCH (07:09)
[2016-12-11] MEDS: (Novolog) Insulin Aspart, Recombinant 100 u/ml 10 ml vial SC SCH ×4 (08:29→21:59)
[2016-12-11] MEDS ORDERED: Pneumococcal 23-Valent Vaccine IM ONE (10:00)
[2016-12-11 10:20] LABS: BASO % 0.3 % (0.0-2.0); EOS # 0.2 K/uL (0.0-0.7); EOS % 1.3 % (0.0-4.0); HEMATOCRIT 29.2 % (35.0-51.0); LYMPH # 1.8 K/uL (1.0-4.3); LYMPH % 15.1 % (20.0-40.0); MEAN CELL VOLUME 78.9 fL (80.0-94.0); MEAN CORPUSCULAR HEMOGLOBIN 24.5 pg (27.0-31.0); MEAN CORPUSCULAR HGB CONC 31.1 g/dL (33.0-37.0); MEAN PLATELET VOLUME 10.3 fL (7.2-11.7); MONO # 0.9 K/uL (0.0-0.8); MONO % 7.3 % (0.0-10.0); RED CELL DISTRIBUTION WIDTH 16.9 % (11.5-14.5)
[2016-12-11 10:27] LABS: CHLORIDE 98 mmol/L (98-107)
[2016-12-11 10:28] LABS: POTASSIUM 3.3 mmol/L (3.6-5.2); SODIUM 134 mmol/L (132-148)
[2016-12-11 10:30] LABS: ALKALINE PHOSPHATASE 58 U/L (38-126); AST/SGOT 84 U/L (17-59); BILIRUBIN,TOTAL 0.9 mg/dL (0.2-1.3); BLOOD UREA NITROGEN 11 mg/dL (9-20); CARBON DIOXIDE 30 mmol/L (22-30); GFR AFRICAN-AMERICAN > 60; TOTAL PROTEIN 6.1 g/dL (6.3-8.3)
[2016-12-11] MEDS: Pantoprazole 40 mg EC Tab PO SCH (10:30)
[2016-12-11 10:31] LABS: ALT/SGPT 41 U/L (21-72); CALCIUM 7.1 mg/dl (8.6-10.4); GLUCOSE,RANDOM 199 mg/dL (75-110); MAGNESIUM 2.1 mg/dL (1.6-2.3)
[2016-12-11] MEDS: Bacitracin Ointment 30 GM TUBE TOP SCH ×2 (10:34→17:42)
--- NOTE | 2016-12-11 10:45 | CP.PCM.PN ---
Subjective - Date & Time of Evaluation Date of Evaluation: 12/11/16 Time of Evaluation: 10:44 - Subjective Subjective: doing well has usual lbp some r calf pain and tinging in r toes ST good no dec to pin today will adv act ok to go to subacute if bed available Objective - Vital Signs/Intake and Output Vital Signs (last 24 hours): Temp Pulse Resp BP Pulse Ox 97.9 F 96 H 20 116/62 99 12/11/16 10:23 12/11/16 10:23 12/11/16 07:00 12/11/16 10:23 12/11/16 07:00 Intake and Output: 12/11/16 12/11/16 06:59 18:59 Intake Total 2260 Output Total 1000 Balance 1260 - Medications Medications: Current Medications Atenolol (Tenormin) 50 mg PO DAILY [facility] Last Admin: 12/11/16 10:30 Dose: 50 mg Bacitracin (Bacitracin) 0 gm TOP BID [facility] Last Admin: 12/11/16 10:34 Dose: 1 applic Hydralazine HCl (Apresoline) 25 mg PO DAILY [facility] Last Admin: 12/11/16 10:30 Dose: 25 mg Hydromorphone HCl (Dilaudid) 0.5 mg IVP Q5M PRN PRN Reason: Pain, moderate (4-7) Last Admin: 12/09/16 16:51 Dose: 0.5 mg Hydromorphone/Sodium Chloride (Dilaudid Social Work Supervisor) 6 mg IV Q4H PRN; Protocol PRN Reason: Pain, moderate (4-7) Last Admin: 12/10/16 23:49 Dose: 6 mg Lactated Ringer's (Lactated Ringer's) 1,000 mls @ 125 mls/hr IV .Q8H [facility] Last Admin: 12/11/16 06:23 Dose: Not Given Potassium Chloride/Dextrose/Sod Cl (Potassium Chl 20 Meq In D5-1/2ns) 1,000 mls @ 100 mls/hr IV .Q10H [facility] Last Admin: 12/10/16 19:41 Dose: 100 mls/hr Insulin Aspart (Novolog) 0 unit SC ACHS [facility] PRN Reason: Protocol Last Admin: 12/11/16 08:29 Dose: 2 unit Levothyroxine Sodium (Synthroid) 75 mcg PO DAILY@0630 [facility] Last Admin: 12/11/16 07:09 Dose: 75 mcg Lisinopril (Zestril) 20 mg PO DAILY [facility] Last Admin: 12/11/16 10:30 Dose: 20 mg Metformin HCl (Glucophage) 500 mg PO DAILY [facility] Last Admin: 12/11/16 10:30 Dose: 500 mg Oxycodone HCl (Oxycodone Immediate Release Tab) 10 mg PO Q4H PRN PRN Reason: Pain, moderate (4-7) Pantoprazole Sodium (Protonix Ec Tab) 40 mg PO DAILY [facility] Last Admin: 12/11/16 10:30 Dose: 40 mg Potassium Chloride (K-Dur 20 Meq Er Tab) 40 meq PO ONCE ONE Stop: 12/11/16 20:01 - Labs Labs: 12/11/16 10:13 12/11/16 10:13 PT 13.0 SECONDS (9.7-12.2) H 12/10/16 04:47 INR 1.2 12/10/16 04:47 APTT 32 SECONDS (21-34) 12/10/16 04:47
[2016-12-11] MEDS ORDERED: Potassium Chloride 20 mEq ER Tab PO ONE ×2 (12:00→20:00)
[2016-12-11] MEDS: oxyCODONE 20 mg ER Tab (oxyCONTIN) PO SCH (12:39)
--- NOTE | 2016-12-11 14:38 | CP.PCM.PN ---
Subjective - Date & Time of Evaluation Date of Evaluation: 12/11/16 Time of Evaluation: 14:35 - Subjective Subjective: Patient seen and examined at bedside. Patient states his right neck pain has improved since yesterday. He continues to feel relief of numbness/tingling to right side by positioning his neck side-bent right onto pillow. He is complaining of right calf pain and tingling to his foot. Patient encouraged to use IS. Patient admits to passing flatus. He is encouraged to ambulate today with physical therapy. Per neurosurgeon, patient okay for transfer to [facility]. Objective - Vital Signs/Intake and Output Vital Signs (last 24 hours): Temp Pulse Resp BP Pulse Ox 97.9 F 91 H 20 121/69 99 12/11/16 10:23 12/11/16 12:37 12/11/16 07:00 12/11/16 12:37 12/11/16 07:00 Intake and Output: 12/11/16 12/11/16 06:59 18:59 Intake Total 2260 Output Total 1000 400 Balance 1260 -400 - Medications Medications: Current Medications Atenolol (Tenormin) 50 mg PO DAILY [facility] Last Admin: 12/11/16 10:30 Dose: 50 mg Bacitracin (Bacitracin) 0 gm TOP BID [facility] Last Admin: 12/11/16 10:34 Dose: 1 applic Hydralazine HCl (Apresoline) 25 mg PO DAILY [facility] Last Admin: 12/11/16 10:30 Dose: 25 mg Hydromorphone HCl (Dilaudid) 0.5 mg IVP Q5M PRN PRN Reason: Pain, moderate (4-7) Last Admin: 12/09/16 16:51 Dose: 0.5 mg Lactated Ringer's (Lactated Ringer's) 1,000 mls @ 125 mls/hr IV .Q8H [facility] Last Admin: 12/11/16 06:23 Dose: Not Given Potassium Chloride/Dextrose/Sod Cl (Potassium Chl 20 Meq In D5-1/2ns) 1,000 mls @ 100 mls/hr IV .Q10H [facility] Last Admin: 12/10/16 19:41 Dose: 100 mls/hr Insulin Aspart (Novolog) 0 unit SC ACHS [facility] PRN Reason: Protocol Last Admin: 12/11/16 12:13 Dose: Not Given Levothyroxine Sodium (Synthroid) 75 mcg PO DAILY@0630 [facility] Last Admin: 12/11/16 07:09 Dose: 75 mcg Lisinopril (Zestril) 20 mg PO DAILY [facility] Last Admin: 12/11/16 10:30 Dose: 20 mg Metformin HCl (Glucophage) 500 mg PO DAILY [facility] Last Admin: 12/11/16 10:30 Dose: 500 mg Oxycodone HCl (Oxycontin Extended Release Tab) 20 mg PO Q12H [facility] Last Admin: 12/11/16 12:39 Dose: 20 mg Oxycodone HCl (Oxycodone Immediate Release Tab) 5 mg PO Q4H PRN PRN Reason: BREAKTHROUGH PAIN Stop: 12/14/16 10:48 Pantoprazole Sodium (Protonix Ec Tab) 40 mg PO DAILY [facility] Last Admin: 12/11/16 10:30 Dose: 40 mg - Labs Labs: 12/11/16 10:13 12/11/16 10:13 PT 13.0 SECONDS (9.7-12.2) H 12/10/16 04:47 INR 1.2 12/10/16 04:47 APTT 32 SECONDS (21-34) 12/10/16 04:47 - Constitutional Appears: Non-toxic, No Acute Distress - Head Exam Head Exam: ATRAUMATIC, NORMAL INSPECTION, NORMOCEPHALIC - Eye Exam Eye Exam: EOMI, Normal appearance, PERRL - ENT Exam ENT Exam: Mucous Membranes Moist - Neck Exam Neck Exam: Tenderness Additional comments: right sided tenderness to lateral neck - Respiratory Exam Respiratory Exam: Clear to Ausculation Bilateral, NORMAL BREATHING PATTERN. absent: Rales, Rhonchi, Wheezes - Cardiovascular Exam Cardiovascular Exam: +S1, +S2. absent: Bradycardia, Tachycardia, Murmur - GI/Abdominal Exam GI & Abdominal Exam: Soft, Normal Bowel Sounds. absent: Tenderness - Extremities Exam Extremities Exam: absent: Pedal Edema Additional comments: tenderness to right calf. Sensation intact to bilateral upper and lower extremities. - Neurological Exam Neurological Exam: Alert, Awake, Oriented x3 Neuro motor strength exam: Left Upper Extremity: 5, Right Upper Extremity: 5, Left Lower Extremity: 5, Right Lower Extremity: 5 - Psychiatric Exam Psychiatric exam: Normal Affect, Normal Mood - Skin Skin Exam: Intact, Normal Color, Warm Assessment and Plan - Assessment and Plan (Free Text) Assessment: s/p L4-S1 fusion Management per neurosurgeon, Dr. Page Patient switched to po pain medications PT/OT - encourage ambulation Chest Pain MARLYN x3 ordered CPK 5516, CK-MB 40.5 (elevated in light of surgery), Troponin I <0.0120 CPK 31.2, CK-MB 5631, Troponin I <0.0120 3rd MARLYN CPK 5001, CK-MB 22.2, Troponin I <0.0120 Electrolyte Abnormality Hypokalemia improved to 3.3. Patient continued on IV potassium chloride and given kdur 40 meq once Hypomagnesium resolved. f/u electrolytes Diabetes Mellitus Type II Started on home medication Metformin 500 mg po daily Continue Insulin Sliding Scale - changed to high protocol Accuchecks hemoglobin a1c 6.6 Hypertension Continues to be normotensive Continue home medications: Lisinopril 20 mg po daily Hydralazine 25 mg po daily Atenolol 50 mg po daily Lipid Panel: Triglycerides 116, Cholesterol 146, LDL Cholesterol Direct 65, HDL 28 Hypothyroidism Continue home medication Levothyroxine 75 mcg po daily TSH 0.39, free T4 1.38 Thrombocytopenia Platelets improved to 169. Likely due to lab error Platelets 36 CBC with differential, Manual platelet count, and peripheral blood smear Hold Anticoagulation for 3 days including aspirin per Dr. Page Microcytic Anemia Iron studies normal Recommend patient have outpatient workup with Piece Goods Clerk for further characterization of microcytic anemia ie. electrophoresis Prophylaxis SCDS Per neurosurgery, no anticoagulation for three days Protonix 40 mg po daily Colace 100 mg po BID IS q1h PT/OT Dispo Per neurosurgery, patient okay to be transferred to [facility].
[2016-12-11] MEDS: oxyCODONE 5 mg Immediate Release Tab PO PRN (15:39)
[2016-12-11] MEDS: Potassium Ch 20mEq in D5-1/2NS 1,000 ML IV SCH (16:47)
[2016-12-12] MEDS: oxyCODONE 20 mg ER Tab (oxyCONTIN) PO SCH ×2 (00:03→12:43)
[2016-12-12] MEDS: Potassium Ch 20mEq in D5-1/2NS 1,000 ML IV SCH ×2 (02:41→14:23)
--- NOTE | 2016-12-12 03:25 | CP.PCM.PN ---
Subjective - Date & Time of Evaluation Date of Evaluation: 12/12/16 Time of Evaluation: 03:22 - Subjective Subjective: PGY 1 Medicine Note- Hospitalist service Pt seen and examined in no acute distress. Patient has some numbness/tingling of right side of neck. Patient tolerating BIPAP therapy and working with physical therapy. He is currently awaiting HORTENCIA placement. At this time, he denies subjective fevers or chills, chest pain, palpitations, nausea, vomiting, diarrhea. Objective - Vital Signs/Intake and Output Vital Signs (last 24 hours): Temp Pulse Resp BP Pulse Ox 98.3 F 71 20 116/70 96 12/11/16 23:50 12/11/16 23:50 12/11/16 23:50 12/11/16 23:50 12/11/16 23:50 Intake and Output: 12/11/16 12/12/16 18:59 06:59 Intake Total 1200 Output Total 400 1000 Balance 800 -1000 - Medications Medications: Current Medications Atenolol (Tenormin) 50 mg PO DAILY [facility] Last Admin: 12/11/16 10:30 Dose: 50 mg Bacitracin (Bacitracin) 0 gm TOP BID [facility] Last Admin: 12/11/16 17:42 Dose: 1 applic Docusate Sodium (Colace) 100 mg PO BID [facility] Last Admin: 12/11/16 17:42 Dose: 100 mg Hydralazine HCl (Apresoline) 25 mg PO DAILY [facility] Last Admin: 12/11/16 10:30 Dose: 25 mg Hydromorphone HCl (Dilaudid) 0.5 mg IVP Q5M PRN PRN Reason: Pain, moderate (4-7) Last Admin: 12/09/16 16:51 Dose: 0.5 mg Lactated Ringer's (Lactated Ringer's) 1,000 mls @ 125 mls/hr IV .Q8H [facility] Last Admin: 12/11/16 15:26 Dose: Not Given Potassium Chloride/Dextrose/Sod Cl (Potassium Chl 20 Meq In D5-1/2ns) 1,000 mls @ 100 mls/hr IV .Q10H [facility] Last Admin: 12/12/16 02:41 Dose: 100 mls/hr Insulin Aspart (Novolog) 0 unit SC ACHS [facility] PRN Reason: Protocol Last Admin: 12/11/16 21:59 Dose: Not Given Levothyroxine Sodium (Synthroid) 75 mcg PO DAILY@0630 [facility] Last Admin: 12/11/16 07:09 Dose: 75 mcg Lisinopril (Zestril) 20 mg PO DAILY [facility] Last Admin: 12/11/16 10:30 Dose: 20 mg Metformin HCl (Glucophage) 500 mg PO DAILY [facility] Last Admin: 12/11/16 10:30 Dose: 500 mg Oxycodone HCl (Oxycontin Extended Release Tab) 20 mg PO Q12H [facility] Last Admin: 12/12/16 00:03 Dose: 20 mg Oxycodone HCl (Oxycodone Immediate Release Tab) 5 mg PO Q4H PRN PRN Reason: BREAKTHROUGH PAIN Stop: 12/14/16 10:48 Last Admin: 12/11/16 15:39 Dose: 5 mg Pantoprazole Sodium (Protonix Ec Tab) 40 mg PO DAILY [facility] Last Admin: 12/11/16 10:30 Dose: 40 mg - Labs Labs: 12/11/16 10:13 12/11/16 10:13 PT 13.0 SECONDS (9.7-12.2) H 12/10/16 04:47 INR 1.2 12/10/16 04:47 APTT 32 SECONDS (21-34) 12/10/16 04:47 - Constitutional Appears: Non-toxic, No Acute Distress - Head Exam Head Exam: ATRAUMATIC, NORMAL INSPECTION, NORMOCEPHALIC - Eye Exam Eye Exam: EOMI, Normal appearance, PERRL Pupil Exam: NORMAL ACCOMODATION - ENT Exam ENT Exam: Mucous Membranes Moist - Neck Exam Neck Exam: Tenderness. absent: Full ROM - Respiratory Exam Respiratory Exam: NORMAL BREATHING PATTERN. absent: Wheezes - Cardiovascular Exam Cardiovascular Exam: +S1, +S2 - GI/Abdominal Exam GI & Abdominal Exam: Soft, Normal Bowel Sounds - Extremities Exam Extremities Exam: Normal Capillary Refill. absent: Pedal Edema - Back Exam Back Exam: Full ROM, tenderness (right calf) - Neurological Exam Neurological Exam: Alert, Awake - Psychiatric Exam Psychiatric exam: Normal Affect, Normal Mood - Skin Skin Exam: Dry, Intact, Normal Color, Warm Assessment and Plan - Assessment and Plan (Free Text) Assessment: s/p L4-S1 fusion Management per neurosurgeon, Dr. Page - F/U recommendations Patient switched to po pain medications PT/OT - encourage ambulation Chest Pain MARLYN x3 ordered CPK 5516, CK-MB 40.5 (elevated in light of surgery), Troponin I <0.0120 CPK 31.2, CK-MB 5631, Troponin I <0.0120 3rd MARLYN CPK 5001, CK-MB 22.2, Troponin I <0.0120 Electrolyte Abnormality Hypokalemia improved to 3.3. Patient continued on IV potassium chloride and given kdur 40 meq once Hypomagnesium resolved. Continue to monitor and replete as needed Diabetes Mellitus Type II Started on home medication Metformin 500 mg po daily Continue Insulin Sliding Scale - changed to high protocol Accuchecks hemoglobin a1c 6.6 Hypertension Continues to be normotensive Continue home medications: Lisinopril 20 mg po daily Hydralazine 25 mg po daily Atenolol 50 mg po daily Lipid Panel: Triglycerides 116, Cholesterol 146, LDL Cholesterol Direct 65, HDL 28 Hypothyroidism Continue home medication Levothyroxine 75 mcg po daily TSH 0.39, free T4 1.38 Thrombocytopenia Platelets stable CBC with differential, Manual platelet count, and peripheral blood smear Hold Anticoagulation for 3 days including aspirin per Dr[address] Page Microcytic Anemia Iron studies normal Recommend patient have outpatient workup with Manager Proposal for further characterization of microcytic anemia ie. electrophoresis Prophylaxis SCDS Per neurosurgery, no anticoagulation for three days Protonix 40 mg po daily Colace 100 mg po BID IS q1h PT/OT Dispo Awaiting transfer to [facility]
[2016-12-12] MEDS: Levothyroxine 75 MCG TAB PO SCH (06:17)
[2016-12-12 07:36] LABS: BASO % 0.5 % (0.0-2.0); EOS # 0.6 K/uL (0.0-0.7); EOS % 5.8 % (0.0-4.0); HEMATOCRIT 26.9 % (35.0-51.0); LYMPH # 2.2 K/uL (1.0-4.3); MEAN CELL VOLUME 78.6 fL (80.0-94.0); MEAN CORPUSCULAR HGB CONC 31.8 g/dL (33.0-37.0); MEAN PLATELET VOLUME 10.1 fL (7.2-11.7); MONO # 0.7 K/uL (0.0-0.8); MONO % 6.8 % (0.0-10.0); NRBC % 0.1 % (0.0-2.0); RED CELL DISTRIBUTION WIDTH 17.2 % (11.5-14.5); WHITE BLOOD COUNT 9.5 K/uL (4.8-10.8)
[2016-12-12 07:45] LABS: CHLORIDE 99 mmol/L (98-107); SODIUM 135 mmol/L (132-148)
[2016-12-12 07:46] LABS: POTASSIUM 3.5 mmol/L (3.6-5.2)
[2016-12-12 07:48] LABS: ALB/GLOB RATIO 0.9 (1.0-2.1); ALKALINE PHOSPHATASE 63 U/L (38-126); AST/SGOT 66 U/L (17-59); BILIRUBIN,TOTAL 0.8 mg/dL (0.2-1.3); BLOOD UREA NITROGEN 12 mg/dL (9-20); CARBON DIOXIDE 30 mmol/L (22-30); GFR AFRICAN-AMERICAN > 60; GLUCOSE,RANDOM 133 mg/dL (75-110); TOTAL PROTEIN 5.9 g/dL (6.3-8.3)
[2016-12-12 07:49] LABS: ALT/SGPT 35 U/L (21-72); CALCIUM 7.4 mg/dl (8.6-10.4); MAGNESIUM 2.1 mg/dL (1.6-2.3)
[2016-12-12] MEDS: (Novolog) Insulin Aspart, Recombinant 100 u/ml 10 ml vial SC SCH ×4 (07:58→21:45)
--- NOTE | 2016-12-12 08:51 | CP.PCM.PN ---
Subjective - Date & Time of Evaluation Date of Evaluation: 12/12/16 Time of Evaluation: 08:50 - Subjective Subjective: pt doing better less pain no motor sensory deficits await case management director for transfer to [facility] Objective - Vital Signs/Intake and Output Vital Signs (last 24 hours): Temp Pulse Resp BP Pulse Ox 98.5 F 70 20 108/65 98 12/12/16 07:00 12/12/16 07:00 12/12/16 07:00 12/12/16 07:00 12/12/16 07:00 Intake and Output: 12/12/16 12/12/16 06:59 18:59 Intake Total 1160 Output Total 1825 Balance -665 - Medications Medications: Current Medications Atenolol (Tenormin) 50 mg PO DAILY [facility] Last Admin: 12/11/16 10:30 Dose: 50 mg Bacitracin (Bacitracin) 0 gm TOP BID [facility] Last Admin: 12/11/16 17:42 Dose: 1 applic Docusate Sodium (Colace) 100 mg PO BID [facility] Last Admin: 12/11/16 17:42 Dose: 100 mg Hydralazine HCl (Apresoline) 25 mg PO DAILY [facility] Last Admin: 12/11/16 10:30 Dose: 25 mg Hydromorphone HCl (Dilaudid) 0.5 mg IVP Q5M PRN PRN Reason: Pain, moderate (4-7) Last Admin: 12/09/16 16:51 Dose: 0.5 mg Lactated Ringer's (Lactated Ringer's) 1,000 mls @ 125 mls/hr IV .Q8H [facility] Last Admin: 12/11/16 15:26 Dose: Not Given Potassium Chloride/Dextrose/Sod Cl (Potassium Chl 20 Meq In D5-1/2ns) 1,000 mls @ 100 mls/hr IV .Q10H [facility] Last Admin: 12/12/16 02:41 Dose: 100 mls/hr Insulin Aspart (Novolog) 0 unit SC ACHS [facility] PRN Reason: Protocol Last Admin: 12/12/16 07:58 Dose: 2 unit Levothyroxine Sodium (Synthroid) 75 mcg PO DAILY@0630 [facility] Last Admin: 12/12/16 06:17 Dose: 75 mcg Lisinopril (Zestril) 20 mg PO DAILY [facility] Last Admin: 12/11/16 10:30 Dose: 20 mg Metformin HCl (Glucophage) 500 mg PO DAILY [facility] Last Admin: 12/11/16 10:30 Dose: 500 mg Oxycodone HCl (Oxycontin Extended Release Tab) 20 mg PO Q12H [facility] Last Admin: 12/12/16 00:03 Dose: 20 mg Oxycodone HCl (Oxycodone Immediate Release Tab) 5 mg PO Q4H PRN PRN Reason: BREAKTHROUGH PAIN Stop: 12/14/16 10:48 Last Admin: 12/11/16 15:39 Dose: 5 mg Pantoprazole Sodium (Protonix Ec Tab) 40 mg PO DAILY [facility] Last Admin: 12/11/16 10:30 Dose: 40 mg - Labs Labs: 12/12/16 07:17 12/12/16 07:17 PT 13.0 SECONDS (9.7-12.2) H 12/10/16 04:47 INR 1.2 12/10/16 04:47 APTT 32 SECONDS (21-34) 12/10/16 04:47
[2016-12-12] MEDS: Bacitracin Ointment 30 GM TUBE TOP SCH ×2 (09:12→18:39)
[2016-12-12] MEDS: Pantoprazole 40 mg EC Tab PO SCH (09:13)
[2016-12-12] MEDS: Lactated Ringer's 1,000 ML IV SCH (13:38)
[2016-12-12] MEDS ORDERED: Pneumococcal 23-Valent Vaccine IM ONE (15:00)
[2016-12-12] MEDS ORDERED: DiphenhydrAMINE 50 mg/ml Inj IVP STA (22:11)
[2016-12-13] MEDS: oxyCODONE 20 mg ER Tab (oxyCONTIN) PO SCH ×4 (00:35→18:01)
--- NOTE | 2016-12-13 01:46 | CP.PCM.PN ---
Subjective - Date & Time of Evaluation Date of Evaluation: 12/13/16 Time of Evaluation: 01:42 - Subjective Subjective: PGY 1 Medicine Note- Hospitalist service Pt seen and examined in no acute distress. Patient accompanied by niece and other family member present bedside. Patient states that he has felt itchy since his procedure. He constantly scratches everywhere as a result. He has some mild pain at the surgical site. He admits to occasional headaches but otherwise denies subjective fevers or chills, chest pain, palpitations, paresthesias, weakness, nausea, vomiting or diarrhea at this time. Objective - Vital Signs/Intake and Output Vital Signs (last 24 hours): Temp Pulse Resp BP Pulse Ox 98.1 F 77 20 140/89 96 12/12/16 23:40 12/12/16 23:40 12/12/16 23:40 12/12/16 23:40 12/12/16 23:40 Intake and Output: 12/12/16 12/13/16 18:59 06:59 Intake Total 200 350 Output Total 400 Balance -200 350 - Medications Medications: Current Medications Atenolol (Tenormin) 50 mg PO DAILY [facility] Last Admin: 12/12/16 09:13 Dose: 50 mg Bacitracin (Bacitracin) 0 gm TOP BID [facility] Last Admin: 12/12/16 18:39 Dose: 1 applic Docusate Sodium (Colace) 100 mg PO BID [facility] Last Admin: 12/12/16 18:38 Dose: 100 mg Hydralazine HCl (Apresoline) 25 mg PO DAILY [facility] Last Admin: 12/12/16 09:13 Dose: 25 mg Hydromorphone HCl (Dilaudid) 0.5 mg IVP Q5M PRN PRN Reason: Pain, moderate (4-7) Last Admin: 12/09/16 16:51 Dose: 0.5 mg Insulin Aspart (Novolog) 0 unit SC ACHS [facility] PRN Reason: Protocol Last Admin: 12/12/16 21:45 Dose: Not Given Levothyroxine Sodium (Synthroid) 75 mcg PO DAILY@0630 [facility] Last Admin: 12/12/16 06:17 Dose: 75 mcg Lisinopril (Zestril) 20 mg PO DAILY [facility] Last Admin: 12/12/16 09:13 Dose: 20 mg Metformin HCl (Glucophage) 500 mg PO DAILY [facility] Last Admin: 12/12/16 09:13 Dose: 500 mg Oxycodone HCl (Oxycontin Extended Release Tab) 20 mg PO Q12H [facility] Last Admin: 12/12/16 12:43 Dose: 20 mg Oxycodone HCl (Oxycodone Immediate Release Tab) 5 mg PO Q4H PRN PRN Reason: BREAKTHROUGH PAIN Stop: 12/14/16 10:48 Last Admin: 12/11/16 15:39 Dose: 5 mg Pantoprazole Sodium (Protonix Ec Tab) 40 mg PO DAILY [facility] Last Admin: 12/12/16 09:13 Dose: 40 mg - Labs Labs: 12/12/16 07:17 12/12/16 07:17 PT 13.0 SECONDS (9.7-12.2) H 12/10/16 04:47 INR 1.2 12/10/16 04:47 APTT 32 SECONDS (21-34) 12/10/16 04:47 - Constitutional Appears: Non-toxic, No Acute Distress - Head Exam Head Exam: ATRAUMATIC, NORMAL INSPECTION, NORMOCEPHALIC - Eye Exam Eye Exam: EOMI, Normal appearance, PERRL Pupil Exam: NORMAL ACCOMODATION - ENT Exam ENT Exam: Mucous Membranes Moist - Neck Exam Neck Exam: Tenderness - Respiratory Exam Respiratory Exam: absent: Wheezes - Cardiovascular Exam Cardiovascular Exam: +S1, +S2 - GI/Abdominal Exam GI & Abdominal Exam: Soft, Normal Bowel Sounds - Extremities Exam Extremities Exam: Full ROM - Back Exam Additional comments: surgical site, c/d/i - Neurological Exam Neurological Exam: Alert, Awake, Oriented x3 - Psychiatric Exam Psychiatric exam: Normal Affect, Normal Mood - Skin Skin Exam: Intact, Normal Color, Warm Assessment and Plan - Assessment and Plan (Free Text) Assessment: s/p L4-S1 fusion Management per neurosurgeon, Dr. Page - F/U recommendations Patient switched to po pain medications PT/OT - encourage ambulation Chest Pain MARLYN x3 ordered CPK 5516, CK-MB 40.5 (elevated in light of surgery), Troponin I <0.0120 CPK 31.2, CK-MB 5631, Troponin I <0.0120 3rd MARLYN CPK 5001, CK-MB 22.2, Troponin I <0.0120 Electrolyte Abnormality Hypokalemia improved to 3.5. Supplement to be given Hypomagnesium resolved. Continue to monitor and replete as needed Diabetes Mellitus Type II Started on home medication Metformin 500 mg po daily Continue Insulin Sliding Scale - changed to high protocol Accuchecks hemoglobin a1c 6.6 Hypertension Continues to be normotensive Continue home medications: Lisinopril 20 mg po daily Hydralazine 25 mg po daily Atenolol 50 mg po daily Lipid Panel: Triglycerides 116, Cholesterol 146, LDL Cholesterol Direct 65, HDL 28 Hypothyroidism Continue home medication Levothyroxine 75 mcg po daily TSH 0.39, free T4 1.38 Thrombocytopenia Platelets stable CBC with differential, Manual platelet count, and peripheral blood smear Hold Anticoagulation for 3 days including aspirin per Dr. Page Microcytic Anemia Iron studies normal Recommend patient have outpatient workup with Knitting Teacher for further characterization of microcytic anemia ie. electrophoresis Pruritus Benadryl x1 given Will recheck meds to identify source Prophylaxis SCDS Per neurosurgery, no anticoagulation for three days Protonix 40 mg po daily Colace 100 mg po BID IS q1h PT/OT Dispo Awaiting transfer to [facility]
[2016-12-13] MEDS: oxyCODONE 5 mg Immediate Release Tab PO PRN (07:07)
[2016-12-13] MEDS: Levothyroxine 75 MCG TAB PO SCH (07:10)
[2016-12-13] MEDS ORDERED: Potassium Chloride 20 mEq ER Tab PO ONE (08:00)
[2016-12-13] MEDS: (Novolog) Insulin Aspart, Recombinant 100 u/ml 10 ml vial SC SCH ×4 (08:30→22:30)
[2016-12-13 08:35] LABS: BASO % 0.5 % (0.0-2.0); EOS # 0.6 K/uL (0.0-0.7); EOS % 6.8 % (0.0-4.0); HEMATOCRIT 28.4 % (35.0-51.0); LYMPH # 2.7 K/uL (1.0-4.3); LYMPH % 28.9 % (20.0-40.0); MEAN CELL VOLUME 78.2 fL (80.0-94.0); MEAN CORPUSCULAR HEMOGLOBIN 24.7 pg (27.0-31.0); MEAN CORPUSCULAR HGB CONC 31.6 g/dL (33.0-37.0); MEAN PLATELET VOLUME 10.2 fL (7.2-11.7); MONO # 0.6 K/uL (0.0-0.8); MONO % 6.2 % (0.0-10.0); RED CELL DISTRIBUTION WIDTH 16.5 % (11.5-14.5); WHITE BLOOD COUNT 9.3 K/uL (4.8-10.8)
[2016-12-13 09:04] LABS: CHLORIDE 98 mmol/L (98-107); POTASSIUM 3.2 mmol/L (3.6-5.2); SODIUM 141 mmol/L (132-148)
[2016-12-13 09:06] LABS: ALB/GLOB RATIO 0.9 (1.0-2.1); AST/SGOT 58 U/L (17-59); CARBON DIOXIDE 31 mmol/L (22-30); GFR AFRICAN-AMERICAN > 60; TOTAL PROTEIN 6.9 g/dL (6.3-8.3)
[2016-12-13 09:07] LABS: ALKALINE PHOSPHATASE 69 U/L (38-126); ALT/SGPT 38 U/L (21-72); BLOOD UREA NITROGEN 14 mg/dL (9-20); CALCIUM 8.3 mg/dl (8.6-10.4); GLUCOSE,RANDOM 99 mg/dL (75-110); MAGNESIUM 2.1 mg/dL (1.6-2.3); PHOSPHOROUS 2.7 mg/dL (2.5-4.5)
[2016-12-13] MEDS ORDERED: Potassium Chloride 20 mEq ER Tab PO SCH (09:30)
[2016-12-13] MEDS: Pantoprazole 40 mg EC Tab PO SCH (09:49)
[2016-12-13] MEDS: Bacitracin Ointment 30 GM TUBE TOP SCH ×2 (09:50→18:02)
--- NOTE | 2016-12-13 11:47 | CP.PCM.PN ---
Subjective - Date & Time of Evaluation Date of Evaluation: 12/13/16 Time of Evaluation: 11:47 - Subjective Subjective: awaiting authorization for rehab transfer otherwise stable Objective - Vital Signs/Intake and Output Vital Signs (last 24 hours): Temp Pulse Resp BP Pulse Ox 97.5 F L 71 20 155/88 H 96 12/13/16 07:15 12/13/16 07:15 12/13/16 07:15 12/13/16 07:15 12/13/16 07:15 Intake and Output: 12/13/16 12/13/16 06:59 18:59 Intake Total 350 Output Total 800 Balance -450 - Medications Medications: Current Medications Atenolol (Tenormin) 50 mg PO DAILY [facility] Last Admin: 12/13/16 09:49 Dose: 50 mg Bacitracin (Bacitracin) 0 gm TOP BID [facility] Last Admin: 12/13/16 09:50 Dose: 1 applic Docusate Sodium (Colace) 100 mg PO BID [facility] Last Admin: 12/13/16 09:49 Dose: 100 mg Hydralazine HCl (Apresoline) 25 mg PO DAILY [facility] Last Admin: 12/13/16 09:49 Dose: 25 mg Hydromorphone HCl (Dilaudid) 0.5 mg IVP Q5M PRN PRN Reason: Pain, moderate (4-7) Last Admin: 12/09/16 16:51 Dose: 0.5 mg Insulin Aspart (Novolog) 0 unit SC ACHS [facility] PRN Reason: Protocol Last Admin: 12/13/16 08:30 Dose: Not Given Levothyroxine Sodium (Synthroid) 75 mcg PO DAILY@0630 [facility] Last Admin: 12/13/16 07:10 Dose: 75 mcg Lisinopril (Zestril) 20 mg PO DAILY [facility] Last Admin: 12/13/16 09:49 Dose: 20 mg Metformin HCl (Glucophage) 500 mg PO DAILY [facility] Last Admin: 12/13/16 09:49 Dose: 500 mg Oxycodone HCl (Oxycodone Immediate Release Tab) 5 mg PO Q4H PRN PRN Reason: BREAKTHROUGH PAIN Stop: 12/14/16 10:48 Last Admin: 12/13/16 07:07 Dose: 5 mg Oxycodone HCl (Oxycontin Extended Release Tab) 20 mg PO Q12H [facility] Last Admin: 12/13/16 07:45 Dose: Not Given Pantoprazole Sodium (Protonix Ec Tab) 40 mg PO DAILY [facility] Last Admin: 12/13/16 09:49 Dose: 40 mg - Labs Labs: 12/13/16 08:26 12/13/16 08:26 PT 13.0 SECONDS (9.7-12.2) H 12/10/16 04:47 INR 1.2 12/10/16 04:47 APTT 32 SECONDS (21-34) 12/10/16 04:47
[2016-12-14] MEDS: oxyCODONE 20 mg ER Tab (oxyCONTIN) PO SCH ×2 (07:08→20:29)
[2016-12-14] MEDS: Levothyroxine 75 MCG TAB PO SCH (07:09)
[2016-12-14] MEDS: (Novolog) Insulin Aspart, Recombinant 100 u/ml 10 ml vial SC SCH ×4 (07:50→22:23)
[2016-12-14 08:13] LABS: BASO % 0.6 % (0.0-2.0); EOS # 0.7 K/uL (0.0-0.7); EOS % 9.3 % (0.0-4.0); LYMPH # 2.3 K/uL (1.0-4.3); LYMPH % 29.1 % (20.0-40.0); MONO # 0.7 K/uL (0.0-0.8)
[2016-12-14 08:32] LABS: HEMATOCRIT 27.4 % (35.0-51.0); MEAN CELL VOLUME 77.3 fL (80.0-94.0); MEAN CORPUSCULAR HGB CONC 32.3 g/dL (33.0-37.0); MEAN PLATELET VOLUME 9.6 fL (7.2-11.7); MONO % 8.6 % (0.0-10.0); RED CELL DISTRIBUTION WIDTH 16.1 % (11.5-14.5); WHITE BLOOD COUNT 7.9 K/uL (4.8-10.8)
[2016-12-14 08:43] LABS: CHLORIDE 96 mmol/L (98-107); POTASSIUM 3.4 mmol/L (3.6-5.2); SODIUM 137 mmol/L (132-148)
[2016-12-14 08:45] LABS: BILIRUBIN,TOTAL 0.9 mg/dL (0.2-1.3); GFR AFRICAN-AMERICAN > 60
[2016-12-14 08:46] LABS: ALB/GLOB RATIO 0.9 (1.0-2.1); ALKALINE PHOSPHATASE 69 U/L (38-126); ALT/SGPT 37 U/L (21-72); AST/SGOT 44 U/L (17-59); BLOOD UREA NITROGEN 15 mg/dL (9-20); CARBON DIOXIDE 31 mmol/L (22-30); GLUCOSE,RANDOM 100 mg/dL (75-110); PHOSPHOROUS 3.4 mg/dL (2.5-4.5); TOTAL PROTEIN 6.9 g/dL (6.3-8.3)
[2016-12-14 08:47] LABS: CALCIUM 7.9 mg/dl (8.6-10.4); MAGNESIUM 1.8 mg/dL (1.6-2.3)
[2016-12-14] MEDS: Pantoprazole 40 mg EC Tab PO SCH (09:17)
--- NOTE | 2016-12-14 10:36 | CP.PCM.PN ---
Subjective - Date & Time of Evaluation Date of Evaluation: 12/14/16 Time of Evaluation: 10:35 - Subjective Subjective: awaiting authorization for rehab transfer Objective - Vital Signs/Intake and Output Vital Signs (last 24 hours): Temp Pulse Resp BP Pulse Ox 98.0 F 74 20 179/97 H 95 12/14/16 08:54 12/14/16 08:54 12/14/16 08:54 12/14/16 08:54 12/14/16 08:54 Intake and Output: 12/14/16 12/14/16 06:59 18:59 Intake Total 500 Output Total 1100 Balance -600 - Medications Medications: Current Medications Atenolol (Tenormin) 50 mg PO DAILY [facility] Last Admin: 12/14/16 09:17 Dose: 50 mg Bacitracin (Bacitracin) 0 gm TOP BID [facility] Last Admin: 12/13/16 18:02 Dose: 1 applic Docusate Sodium (Colace) 100 mg PO BID [facility] Last Admin: 12/14/16 09:17 Dose: 100 mg Hydralazine HCl (Apresoline) 25 mg PO DAILY [facility] Last Admin: 12/14/16 09:17 Dose: 25 mg Insulin Aspart (Novolog) 0 unit SC ACHS [facility] PRN Reason: Protocol Last Admin: 12/14/16 07:50 Dose: Not Given Levothyroxine Sodium (Synthroid) 75 mcg PO DAILY@0630 [facility] Last Admin: 12/14/16 07:09 Dose: 75 mcg Lisinopril (Zestril) 20 mg PO DAILY [facility] Last Admin: 12/14/16 09:17 Dose: 20 mg Metformin HCl (Glucophage) 500 mg PO DAILY [facility] Last Admin: 12/14/16 09:17 Dose: 500 mg Oxycodone HCl (Oxycodone Immediate Release Tab) 5 mg PO Q4H PRN PRN Reason: BREAKTHROUGH PAIN Stop: 12/14/16 10:48 Last Admin: 12/13/16 07:07 Dose: 5 mg Oxycodone HCl (Oxycontin Extended Release Tab) 20 mg PO Q12H [facility] Last Admin: 12/14/16 07:08 Dose: 20 mg Pantoprazole Sodium (Protonix Ec Tab) 40 mg PO DAILY [facility] Last Admin: 12/14/16 09:17 Dose: 40 mg Potassium Chloride (K-Dur 20 Meq Er Tab) 20 meq PO DAILY [facility] - Labs Labs: 12/14/16 08:04 12/14/16 08:04 PT 13.0 SECONDS (9.7-12.2) H 12/10/16 04:47 INR 1.2 12/10/16 04:47 APTT 32 SECONDS (21-34) 12/10/16 04:47
[2016-12-14] MEDS: Bacitracin Ointment 30 GM TUBE TOP SCH ×2 (10:41→22:24)
[2016-12-14] MEDS: Potassium Chloride 20 mEq ER Tab PO SCH (10:45)
--- NOTE | 2016-12-14 20:52 | CP.PCM.PN ---
<LeonidjoseFelician - Last Filed: 12/14/16 20:55> Subjective - Date & Time of Evaluation Date of Evaluation: 12/14/16 Time of Evaluation: 07:47 - Subjective Subjective: Pt seen and examined. Pt reports that he has pain in his lower back and in his legs bilaterally. He also reports that he is experiencing parasthesias on the lateral aspect of both thighs bilaterally and in the ventral surfaces of his feet. Pt reports difficulty ambulating. Pt denies fever, chills, chest pain, shortness of breath, nausea, and vomiting. Objective - Vital Signs/Intake and Output Vital Signs (last 24 hours): Temp Pulse Resp BP Pulse Ox 98.4 F 73 20 146/72 95 12/14/16 15:55 12/14/16 15:55 12/14/16 15:55 12/14/16 15:55 12/14/16 15:55 Intake and Output: 12/14/16 12/15/16 18:59 06:59 Intake Total 600 Balance 600 - Medications Medications: Current Medications Atenolol (Tenormin) 50 mg PO DAILY [facility] Last Admin: 12/14/16 09:17 Dose: 50 mg Bacitracin (Bacitracin) 0 gm TOP BID [facility] Last Admin: 12/14/16 10:41 Dose: Not Given Docusate Sodium (Colace) 100 mg PO BID [facility] Last Admin: 12/14/16 17:34 Dose: 100 mg Hydralazine HCl (Apresoline) 25 mg PO BID [facility] Last Admin: 12/14/16 17:34 Dose: 25 mg Hydrochlorothiazide (Hydrodiuril) 25 mg PO DAILY [facility] Last Admin: 12/14/16 15:15 Dose: 25 mg Insulin Aspart (Novolog) 0 unit SC ACHS [facility] PRN Reason: Protocol Last Admin: 12/14/16 16:03 Dose: Not Given Levothyroxine Sodium (Synthroid) 75 mcg PO DAILY@0630 [facility] Last Admin: 12/14/16 07:09 Dose: 75 mcg Lisinopril (Zestril) 20 mg PO DAILY [facility] Last Admin: 12/14/16 09:17 Dose: 20 mg Metformin HCl (Glucophage) 500 mg PO DAILY [facility] Last Admin: 12/14/16 09:17 Dose: 500 mg Oxycodone HCl (Oxycontin Extended Release Tab) 20 mg PO Q12H [facility] Last Admin: 12/14/16 20:29 Dose: 20 mg Pantoprazole Sodium (Protonix Ec Tab) 40 mg PO DAILY [facility] Last Admin: 12/14/16 09:17 Dose: 40 mg Potassium Chloride (K-Dur 20 Meq Er Tab) 20 meq PO DAILY [facility] Last Admin: 12/14/16 10:45 Dose: 20 meq - Labs Labs: 12/14/16 08:04 12/14/16 08:04 PT 13.0 SECONDS (9.7-12.2) H 12/10/16 04:47 INR 1.2 12/10/16 04:47 APTT 32 SECONDS (21-34) 12/10/16 04:47 - Constitutional Appears: No Acute Distress - Head Exam Head Exam: ATRAUMATIC, NORMOCEPHALIC - Eye Exam Eye Exam: EOMI - ENT Exam ENT Exam: Mucous Membranes Moist - Neck Exam Neck Exam: Full ROM - Respiratory Exam Respiratory Exam: Clear to Ausculation Bilateral. absent: Rales, Rhonchi, Wheezes - Cardiovascular Exam Cardiovascular Exam: +S1, +S2. absent: Gallop, Rubs - GI/Abdominal Exam GI & Abdominal Exam: Soft. absent: Distended, Tenderness - Extremities Exam Extremities Exam: Full ROM. absent: Pedal Edema - Back Exam Back Exam: vertebral tenderness - Neurological Exam Neurological Exam: Alert, Awake, Oriented x3 Neuro motor strength exam: Left Upper Extremity: 5, Right Upper Extremity: 5, Left Lower Extremity: 3, Right Lower Extremity: 3 - Psychiatric Exam Psychiatric exam: Normal Affect, Normal Mood - Skin Skin Exam: Normal Color, Warm Assessment and Plan - Assessment and Plan (Free Text) Assessment: Pt cleared for discharge, awaiting authorization for [facility] s/p L4-S1 fusion Management per neurosurgeon, Dr. Page Pt cleared for discharge as per neurosurgery Patient switched to po pain medications PT/OT - encourage ambulation Chest Pain MARLYN x3 ordered CPK 5516, CK-MB 40.5 (elevated in light of surgery), Troponin I <0.0120 CPK 31.2, CK-MB 5631, Troponin I <0.0120 3rd MARLYN CPK 5001, CK-MB 22.2, Troponin I <0.0120 Electrolyte Abnormality Hypokalemia improved to 3.5. Supplement to be given Hypomagnesium resolved. Continue to monitor and replete as needed Diabetes Mellitus Type II Started on home medication Metformin 500 mg po daily Continue Insulin Sliding Scale - changed to high protocol Accuchecks hemoglobin a1c 6.6 Hypertension BP 179/97 Lisinopril 20 mg po daily Hydralazine 25 mg po bid HCTZ 25 mg po qd Atenolol 50 mg po daily Lipid Panel: Triglycerides 116, Cholesterol 146, LDL Cholesterol Direct 65, HDL 28 Hypothyroidism Continue home medication Levothyroxine 75 mcg po daily TSH 0.39, free T4 1.38 Thrombocytopenia Platelets stable CBC with differential, Manual platelet count, and peripheral blood smear Hold Anticoagulation for 3 days including aspirin per Dr. Page Microcytic Anemia Iron studies normal Recommend patient have outpatient workup with Mapping Supervisor for further characterization of microcytic anemia ie. electrophoresis Pruritus Benadryl x1 given Will recheck meds to identify source Prophylaxis SCDS Per neurosurgery, no anticoagulation for three days Protonix 40 mg po daily Colace 100 mg po BID IS q1h PT/OT <Eliecer Potter - Last Filed: 12/15/16 17:33> Objective - Vital Signs/Intake and Output Vital Signs (last 24 hours): Temp Pulse Resp BP Pulse Ox 97.4 F L 64 20 150/85 96 12/15/16 08:00 12/15/16 08:00 12/15/16 08:00 12/15/16 12:45 12/15/16 08:00 Intake and Output: 12/15/16 12/15/16 06:59 18:59 Intake Total 150 Balance 150 - Labs Labs: 12/14/16 08:04 12/14/16 08:04 PT 13.0 SECONDS (9.7-12.2) H 12/10/16 04:47 INR 1.2 12/10/16 04:47 APTT 32 SECONDS (21-34) 12/10/16 04:47 Attending/Attestation - Attestation I have personally seen and examined this patient.: Yes I have fully participated in the care of the patient.: Yes I have reviewed all pertinent clinical information, including history, physical exam and plan: Yes Notes (Text): 12/15/16 17:33 Patient was seen and examined at bedside with the resident complains of some numbness in the lateral aspect of the legs and thighs Continue physical therapy daily Discharge planning as per the primary team Awaiting placement.
[2016-12-15] MEDS: oxyCODONE 20 mg ER Tab (oxyCONTIN) PO SCH (06:39)
[2016-12-15] MEDS: Levothyroxine 75 MCG TAB PO SCH (06:40)
[2016-12-15] MEDS: (Novolog) Insulin Aspart, Recombinant 100 u/ml 10 ml vial SC SCH (08:12)
[2016-12-15] MEDS ORDERED: methylPREDNISolone Depo 80 mg/ml Inj IM ONE (08:46)
--- NOTE | 2016-12-15 08:50 | CP.PCM.PN ---
Subjective - Date & Time of Evaluation Date of Evaluation: 12/15/16 Time of Evaluation: 08:48 - Subjective Subjective: still awaiting t to rehab/[facility] stable c/o pain / disathesias lle ex strength throughout p neurontin depomedrol await ss to arrange t to [facility] Objective - Vital Signs/Intake and Output Vital Signs (last 24 hours): Temp Pulse Resp BP Pulse Ox 98.3 F 69 20 136/76 97 12/14/16 23:50 12/14/16 23:50 12/14/16 23:50 12/15/16 06:39 12/14/16 23:50 Intake and Output: 12/15/16 12/15/16 06:59 18:59 Intake Total 150 Balance 150 - Medications Medications: Current Medications Atenolol (Tenormin) 50 mg PO DAILY [facility] Last Admin: 12/14/16 09:17 Dose: 50 mg Bacitracin (Bacitracin) 0 gm TOP BID [facility] Last Admin: 12/14/16 22:24 Dose: 1 applic Docusate Sodium (Colace) 100 mg PO BID [facility] Last Admin: 12/14/16 17:34 Dose: 100 mg Gabapentin (Neurontin) 100 mg PO TID [facility] Hydralazine HCl (Apresoline) 25 mg PO BID [facility] Last Admin: 12/14/16 17:34 Dose: 25 mg Hydrochlorothiazide (Hydrodiuril) 25 mg PO DAILY [facility] Last Admin: 12/14/16 15:15 Dose: 25 mg Insulin Aspart (Novolog) 0 unit SC ACHS [facility] PRN Reason: Protocol Last Admin: 12/15/16 08:12 Dose: Not Given Levothyroxine Sodium (Synthroid) 75 mcg PO DAILY@0630 [facility] Last Admin: 12/15/16 06:40 Dose: 75 mcg Lisinopril (Zestril) 20 mg PO DAILY [facility] Last Admin: 12/14/16 09:17 Dose: 20 mg Metformin HCl (Glucophage) 500 mg PO DAILY [facility] Last Admin: 12/14/16 09:17 Dose: 500 mg Methylprednisolone Acetate (Depo-Medrol) 80 mg IM ONCE ONE Stop: 12/15/16 08:47 Oxycodone HCl (Oxycontin Extended Release Tab) 20 mg PO Q12H [facility] Last Admin: 12/15/16 06:39 Dose: 20 mg Pantoprazole Sodium (Protonix Ec Tab) 40 mg PO DAILY [facility] Last Admin: 12/14/16 09:17 Dose: 40 mg Potassium Chloride (K-Dur 20 Meq Er Tab) 20 meq PO DAILY [facility] Last Admin: 12/14/16 10:45 Dose: 20 meq - Labs Labs: 12/14/16 08:04 12/14/16 08:04 PT 13.0 SECONDS (9.7-12.2) H 12/10/16 04:47 INR 1.2 12/10/16 04:47 APTT 32 SECONDS (21-34) 12/10/16 04:47
[2016-12-15] MEDS: Bacitracin Ointment 30 GM TUBE TOP SCH (09:32)
[2016-12-15] MEDS: Pantoprazole 40 mg EC Tab PO SCH (09:33)
[2016-12-15] MEDS: Potassium Chloride 20 mEq ER Tab PO SCH (09:33)
[2016-12-15 12:38] VITALS: PULSE 64; TEMP 97.4; O2SAT 96
[2016-12-15 12:52] VITALS: BP 150/85
--- NOTE | 2016-12-15 14:31 | CP.PCM.PN ---
<Kartik Hernandez - Last Filed: 12/15/16 14:28> Subjective - Date & Time of Evaluation Date of Evaluation: 12/15/16 Time of Evaluation: 07:19 - Subjective Subjective: Pt seen and examined. PT reports that he is ambulating with walker. Pt reports moderate pain at site of surgery and pain down his right lateral leg, but not the left lateral leg. He also reports paraesthesias in b/l soles of feet. Pt denies fever, chills, chest pain, shortness of breath, nausea, and vomiting. Objective - Vital Signs/Intake and Output Vital Signs (last 24 hours): Temp Pulse Resp BP Pulse Ox 97.4 F L 64 20 150/85 96 12/15/16 08:00 12/15/16 08:00 12/15/16 08:00 12/15/16 12:45 12/15/16 08:00 Intake and Output: 12/15/16 12/15/16 06:59 18:59 Intake Total 150 Balance 150 - Medications Medications: Current Medications Atenolol (Tenormin) 50 mg PO DAILY [facility] Last Admin: 12/15/16 09:33 Dose: 50 mg Bacitracin (Bacitracin) 0 gm TOP BID [facility] Last Admin: 12/15/16 09:32 Dose: 1 applic Docusate Sodium (Colace) 100 mg PO BID [facility] Last Admin: 12/15/16 09:32 Dose: 100 mg Gabapentin (Neurontin) 100 mg PO TID [facility] Last Admin: 12/15/16 09:33 Dose: 100 mg Hydralazine HCl (Apresoline) 25 mg PO BID [facility] Last Admin: 12/15/16 09:31 Dose: 25 mg Hydrochlorothiazide (Hydrodiuril) 25 mg PO DAILY [facility] Last Admin: 12/15/16 09:30 Dose: 25 mg Insulin Aspart (Novolog) 0 unit SC ACHS [facility] PRN Reason: Protocol Last Admin: 12/15/16 08:12 Dose: Not Given Levothyroxine Sodium (Synthroid) 75 mcg PO DAILY@0630 [facility] Last Admin: 12/15/16 06:40 Dose: 75 mcg Lisinopril (Zestril) 20 mg PO DAILY [facility] Last Admin: 12/15/16 09:33 Dose: 20 mg Metformin HCl (Glucophage) 500 mg PO DAILY [facility] Last Admin: 12/15/16 09:32 Dose: 500 mg Oxycodone HCl (Oxycontin Extended Release Tab) 20 mg PO Q12H [facility] Last Admin: 12/15/16 06:39 Dose: 20 mg Pantoprazole Sodium (Protonix Ec Tab) 40 mg PO DAILY [facility] Last Admin: 12/15/16 09:33 Dose: 40 mg Potassium Chloride (K-Dur 20 Meq Er Tab) 20 meq PO DAILY [facility] Last Admin: 12/15/16 09:33 Dose: 20 meq - Labs Labs: 12/14/16 08:04 12/14/16 08:04 PT 13.0 SECONDS (9.7-12.2) H 12/10/16 04:47 INR 1.2 12/10/16 04:47 APTT 32 SECONDS (21-34) 12/10/16 04:47 - Constitutional Appears: No Acute Distress - Head Exam Head Exam: ATRAUMATIC, NORMOCEPHALIC - Eye Exam Eye Exam: EOMI, PERRL - ENT Exam ENT Exam: Mucous Membranes Moist. absent: Mucous Membranes Dry - Neck Exam Neck Exam: Full ROM - Respiratory Exam Respiratory Exam: Clear to Ausculation Bilateral. absent: Rales, Rhonchi, Wheezes - Cardiovascular Exam Cardiovascular Exam: +S1, +S2. absent: Gallop, Rubs - GI/Abdominal Exam GI & Abdominal Exam: Soft. absent: Tenderness - Extremities Exam Extremities Exam: Full ROM. absent: Pedal Edema - Neurological Exam Neurological Exam: Alert, Awake, Oriented x3 Neuro motor strength exam: Left Upper Extremity: 5, Right Upper Extremity: 5, Left Lower Extremity: 4, Right Lower Extremity: 4 - Psychiatric Exam Psychiatric exam: Normal Affect, Normal Mood - Skin Skin Exam: Normal Color, Warm Assessment and Plan - Assessment and Plan (Free Text) Assessment: Pt stable. Awaiting authorization from [facility]. s/p L4-S1 fusion Management per neurosurgeon, Dr. Page Pt cleared for discharge as per neurosurgery Patient switched to po pain medications PT/OT - encourage ambulation Chest Pain MARLYN x3 ordered CPK 5516, CK-MB 40.5 (elevated in light of surgery), Troponin I <0.0120 CPK 31.2, CK-MB 5631, Troponin I <0.0120 3rd MARLYN CPK 5001, CK-MB 22.2, Troponin I <0.0120 Diabetes Mellitus Type II Started on home medication Metformin 500 mg po daily Continue Insulin Sliding Scale - changed to high protocol Accuchecks hemoglobin a1c 6.6 Hypertension BP 179/97 Lisinopril 20 mg po daily Hydralazine 25 mg po bid HCTZ 25 mg po qd Atenolol 50 mg po daily Lipid Panel: Triglycerides 116, Cholesterol 146, LDL Cholesterol Direct 65, HDL 28 Hypothyroidism Continue home medication Levothyroxine 75 mcg po daily TSH 0.39, free T4 1.38 Thrombocytopenia Platelets stable CBC with differential, Manual platelet count, and peripheral blood smear Hold Anticoagulation for 3 days including aspirin per Dr. Page Microcytic Anemia Iron studies normal Recommend patient have outpatient workup with Shredder Picker for further characterization of microcytic anemia ie. electrophoresis Pruritus Benadryl x1 given Will recheck meds to identify source Prophylaxis SCDS Per neurosurgery, no anticoagulation for three days Protonix 40 mg po daily Colace 100 mg po BID IS q1h PT/OT <Eliecer Potter - Last Filed: 12/15/16 18:15> Objective - Vital Signs/Intake and Output Vital Signs (last 24 hours): Temp Pulse Resp BP Pulse Ox 97.4 F L 64 20 150/85 96 12/15/16 08:00 12/15/16 08:00 12/15/16 08:00 12/15/16 12:45 12/15/16 08:00 Intake and Output: 12/15/16 12/15/16 06:59 18:59 Intake Total 150 Balance 150 - Labs Labs: 12/14/16 08:04 12/14/16 08:04 PT 13.0 SECONDS (9.7-12.2) H 12/10/16 04:47 INR 1.2 12/10/16 04:47 APTT 32 SECONDS (21-34) 12/10/16 04:47 Attending/Attestation - Attestation I have personally seen and examined this patient.: Yes I have fully participated in the care of the patient.: Yes I have reviewed all pertinent clinical information, including history, physical exam and plan: Yes Notes (Text): 12/15/16 18:15 Patient was seen and examined at bedside with the resident Patient is medically stable for discharge. Blood pressure is better controlled after titration of medication. Awaiting placement I agree with the above history and physical and assessment/plan by the resident.
== END 2016-12-15 14:00 | DRG 460 ==
LOC: EDBD 07:53 → C.SDS 07:53 → C.9S 15:32 → C.6T 18:25
PROVIDERS: ADMIT Neurological Surgery; ATTEND Neurological Surgery
PROC: 0ST40ZZ Resection of Lumbosacral Disc, Open Approach (ICD-10-PCS; 2016-12-09)
PROC: 01NB0ZZ Release Lumbar Nerve, Open Approach (ICD-10-PCS; 2016-12-09)
PROC: 01N10ZZ Release Cervical Nerve, Open Approach (ICD-10-PCS; 2016-12-09)
PROC: 07DR3ZZ Extraction of Iliac Bone Marrow, Percutaneous Approach (ICD-10-PCS; 2016-12-09)
PROC: 0SG3071 Fusion of Lumbosacral Joint with Autologous Tissue Substitute, Posterior Approach, Posterior Column, Open Approach (ICD-10-PCS; principal; 2016-12-09 09:20)
DX: S33.39 Dislocation of other parts of lumbar spine and pelvis (principal); S33.9XXS Sprain of unspecified parts of lumbar spine and pelvis, sequela; D69.6 Thrombocytopenia, unspecified; I10 Essential (primary) hypertension; E11.9 Type 2 diabetes mellitus without complications; E03.9 Hypothyroidism, unspecified; D50.9 Iron deficiency anemia, unspecified; E87.6 Hypokalemia; L29.9 Pruritus, unspecified; R07.9 Chest pain, unspecified; W11.XXXS Fall on and from ladder, sequela; Z79.84 Long term (current) use of oral hypoglycemic drugs

== ENCOUNTER 2018-06-01 06:44 | Inpatient (IN) | payer OTHER ==
[2016-11-27 08:41] VITALS: BMI 29.5
[2018-06-01] MEDS ORDERED: Propofol 10 mg/ml Inj (20 ML) ONE ×2 (07:17→07:23)
[2018-06-01] MEDS ORDERED: Succinylcholine Chloride 20 mg/ml Syr (5 ml) IV ONE (07:19)
[2018-06-01] MEDS ORDERED: Lidocaine/Epinephrine 1% 1:100000 10 ML IJ ONE (07:36)
[2018-06-01] MEDS ORDERED: Bupivacaine HCl 0.5% PF (30 ml) Inj ONE (07:36)
[2018-06-01] MEDS ORDERED: Bacitracin Ointment 30 GM TUBE ONE (07:36)
[2018-06-01] MEDS ORDERED: Bacitracin 50,000 UNIT in Sodium Chloride 0.9% Irrig 1,000 ML IR SCH (07:45)
[2018-06-01] MEDS ORDERED: Absorbable Gelatin Sponge Size 100 ONE (07:52)
[2018-06-01] MEDS ORDERED: ceFAZolin 1 gm in NS 2 GM/200 ML BAG IVPB ONE (08:00)
[2018-06-01] MEDS ORDERED: Propofol 10 mg/ml 1,000 MG/100 ML VIAL ONE (08:04)
[2018-06-01 08:05] LABS: URINE BILIRUBIN NEGATIVE (NEGATIVE); URINE BLOOD NEGATIVE (NEGATIVE); URINE CLARITY Clear (Clear); URINE COLOR Yellow (YELLOW); URINE GLUCOSE (UA) NORMAL (Normal); URINE LEUKOCYTE ESTERASE NEG Leu/uL (Negative); URINE PROTEIN 2+ mg/dL (NEGATIVE); URINE UROBILINOGEN NORMAL mg/dL (0.2-1.0)
[2018-06-01] MEDS ORDERED: Thrombin Topical 20,000 Intl Units Spray Kit TOP ONE (08:08)
[2018-06-01 08:15] LABS: PROTHROMBIN TIME 10.8 SECONDS (9.7-12.2)
[2018-06-01] MEDS ORDERED: Lactated Ringer's 1,000 ML IV ONE ×2 (08:35→12:00)
[2018-06-01] MEDS ORDERED: Bupivacaine Liposomal Inj 20 ml INFIL ONE (08:40)
[2018-06-01] MEDS ORDERED: Sodium Chloride 0.9% 20 ML IV ONE (09:21)
[2018-06-01] MEDS ORDERED: Neostigmine Methylsulfate 3mg/3ml Syringe IV ONE ×2 (09:45→10:01)
[2018-06-01] MEDS ORDERED: Rocuronium 10 mg/ml (5 ml) ONE (09:45)
[2018-06-01] MEDS ORDERED: Vancomycin 1 g Inj ONE ×2 (11:07)
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
[2018-06-01] MEDS: HYDROmorphone 0.5 mg/0.5 ml ISec ONE ×4 (12:05→12:26)
[2018-06-01] MEDS ORDERED: HYDROmorphone 0.5 mg/0.5 ml ISec IVP PRN (12:14)
--- NOTE | 2018-06-01 13:34 | RAD ---
Date of service: 06/01/2018 PROCEDURE: Intraoperative Fluoroscopy. HISTORY: DISPLACE LUMBAR IMPLANT FINDINGS: Fluoroscopic assistance was provided for displaced lumbar implant.. Please refer to the operative report from [facility] E[facility]. Total fluoroscopic time (continuous mode) utilized during the procedure 11.1 (seconds). Total exam DLP: 3.94 (mGy).
[2018-06-01] MEDS: Potassium Ch 20mEq in D5-1/2NS 1,000 ML IV SCH (16:36)
[2018-06-02] MEDS: Potassium Ch 20mEq in D5-1/2NS 1,000 ML IV SCH ×2 (02:06→11:24)
[2018-06-02] MEDS: Levothyroxine 75 MCG TAB PO SCH (05:49)
--- NOTE | 2018-06-02 07:25 | OP ---
PROCEDURE DATE: 06/01/2018 PREOPERATIVE DIAGNOSIS: Extruded right L5-S1 interbody fusion graft. POSTOPERATIVE DIAGNOSIS: Extruded right L5-S1 interbody fusion graft. PROCEDURE: Revision of spinal hardware, removal of extruded graft, decompression of thecal sac. SURGEON: Matthew Page MD WAISTLINE JOINER LOCKSTITCH: Luis Ward MD ANESTHESIA: General endotracheal. ESTIMATED BLOOD LOSS: 100 mL. COMPLICATIONS: None. JUSTIFICATION: The patient underwent a two-level L4-5 and L5-S1 decompression, fixation, interbody fusion over a year ago. Postoperatively, he began to develop some right radicular pain. There was a problem with him returning to followup with several office visits and/or obtaining or bringing his x-rays. It was thought several months postop that he had potentially an exudate graft. Once again, he did not return with an MRI. Finally, approximately 8 months postop, it was recognized that he did have a displaced right graft. However, at that time he indicated that he only had pain down the contralateral left leg. Ultimately, approximately a year postop, he indicated he was having significant dysesthetic pain down the right leg and he was offered revision surgery and removal of the extruded graft. Again, he was not cleared medically for surgery and it took several months to have his diabetes and hypertension managed appropriately and ultimately now he is being brought to the operating room. The nature of this procedure, the rationale behind it, alternatives, potential risks and complications were discussed with him at length. The particular risk of nerve injury, worsening of pain and dysesthesias, and spinal fluid leak were more specifically delineated to the patient through a blow down operator. The patient understood all the above and he elected to proceed as offered. PROCEDURE: The patient was taken to the operating room. He was hooked up to neurophysiological monitoring, intubated and anesthetized. He was carefully placed on a Asher frame in a prone position. Care was taken to protect his face, eyes, endotracheal tube and all bony prominences. The entire low back region was was then scrubbed with acetone and scrub painted and draped in the usual sterile manner. His old incision was infiltrated with 1% lidocaine with epinephrine. After prepping and draping, the old incision was opened with 10-blade knife. The Bovie cautery was used to resect through the scar in the fascia. We only stripped the paraspinal muscles down on the patient's right side, we left the entire left side intact. We then diverted out laterally to encounter the lateral lamina of the residual L4 lamina. We then again using cautery and Nash elevators delineated the entire construct on the right side that is the connecting rods into the three screw head receptacles. When we dissected enough of that out, we removed the three locking nuts and following this the mimi. We then delineated the residual basically fused facet at the right L5-S1 level. We took a confirmatory x-ray. We then used the high-speed drill to drill down more of the medial facet. We then used a Kerrison rongeur to perform more of a facetectomy there unroofing the exiting right L5 nerve root. We dissected a lot of scar, came down to the very lateral disc there another confirmatory x-ray was taken. At this point, we could actually palpate the extruded graft which was quite hard, again coming out of the disc space medial to our previous area of dissection. At this point, we brought in the microscope and under microscopic vision, we dissected out fair amount of scar in this area and ultimately we were able to delineate the fusion cage, we continued to use microdissection techniques various curettes, a #4 [place] a freer and a Sneha and were able to delineate more and more scar around the implant. We were able to manipulate the implant a little bit, it was freed posteriorly, but was rather fixated in the disc space anteriorly, i.e., fused in which we had believed was most likely. After performing more and more of these microdissection techniques and scar removal, we were finally able to delineate the screws threads for the two water pumping station engineer and thus once we were able to insert the water pumping station engineer into the graft, we had greater manipulation of it and then while carefully shielding the thecal sac, we were finally able to extricate it from the disc space. At this point, we essentially deemed the goal of the procedure complete. There was no CSF visualized. We forcefully irrigated the disc space with several rounds of antibiotics solution, then packed the disc space with some bacitracin powder. After that we covered that with some thrombinated powdered Gelfoam and lastly we covered the thecal sac and the area of dissection with a solid layer of DuraSeal fibrin glue followed by the placement of a solid sheath of Gelfoam. We then replaced a new mimi into the three screw head receptacles on each side and we placed the three locking nuts. We took a final AP and lateral x-rays to confirm good position of the mimi. At this point, we reapproximated the muscle with interrupted 0-Vicryl. We closed the fascia using a tight interrupted 0 Vicryl stitch. We then left the layer of vancomycin powder in the epifascial plane because of his diabetes, closed the subcu in two separate layers of interrupted inverted 2-0 Vicryl. The skin closed with lucas. Bacitracin ointment and a heavy dressing was placed. The patient was turned back onto a supine position on a stretcher. He was aroused from anesthesia and extubated. He was noted moving all groups of both lower extremities well in the recovery room with particular attention to dorsi and plantar flexion of his right foot which was 5/5. All counts were correct. Neurophysiological monitoring remained stable over the procedure. Matthew Page MD
[2018-06-02] MEDS: Diclofenac Sodium Delayed Release 75 mg EC Tab PO SCH (09:10)
--- NOTE | 2018-06-02 09:51 | CP.PCM.PN ---
Subjective - Date & Time of Evaluation Date of Evaluation: 06/02/18 Time of Evaluation: 09:50 - Subjective Subjective: pt sitting in chair c/o incisional pain and right entire leg numbness has good st in both legs and appreciates pin both legs adv activity Objective - Vital Signs/Intake and Output Vital Signs (last 24 hours): Temp Pulse Resp BP Pulse Ox 98.4 F 81 20 141/78 99 06/02/18 09:17 06/02/18 09:17 06/02/18 09:17 06/02/18 09:17 06/02/18 09:17 Intake and Output: 06/02/18 06/02/18 06:59 18:59 Intake Total 1920 Output Total 3100 Balance -1180 - Medications Medications: Current Medications Atenolol (Tenormin) 50 mg PO DAILY [facility] Last Admin: 06/02/18 09:10 Dose: 50 mg Diclofenac Sodium (Voltaren) 75 mg PO DAILY [facility] Last Admin: 06/02/18 09:10 Dose: 75 mg Hydralazine HCl (Apresoline) 25 mg PO DAILY [facility] Last Admin: 06/02/18 09:10 Dose: 25 mg Hydromorphone HCl (Dilaudid) 0.5 mg IVP Q10M PRN PRN Reason: Pain, moderate (4-7) Hydromorphone/Sodium Chloride (Dilaudid Social Worker Masters) 6 mg IV Q4H PRN; Protocol PRN Reason: Pain, severe (8-10) Last Admin: 06/02/18 03:13 Dose: 6 mg Potassium Chloride/Dextrose/Sod Cl (Potassium Chl 20 Meq In D5-1/2ns) 1,000 mls @ 100 mls/hr IV .Q10H [facility] Last Admin: 06/02/18 02:06 Dose: 100 mls/hr Levothyroxine Sodium (Synthroid) 75 mcg PO DAILY@0630 [facility] Last Admin: 06/02/18 05:49 Dose: 75 mcg Lisinopril (Zestril) 20 mg PO DAILY [facility] Metformin HCl (Glucophage) 500 mg PO DAILY [facility] Last Admin: 06/02/18 09:10 Dose: 500 mg Ondansetron HCl (Zofran Tab) 4 mg PO Q6H PRN PRN Reason: Nausea/Vomiting - Labs Labs: PT 10.8 SECONDS (9.7-12.2) 06/01/18 07:54 INR 1.0 06/01/18 07:54 APTT 39 SECONDS (21-34) H 06/01/18 07:54
[2018-06-02] MEDS ORDERED: Oxycodone/Acetaminophen 5/325 mg Tab PO PRN (09:52)
[2018-06-03] MEDS: Levothyroxine 75 MCG TAB PO SCH (06:42)
[2018-06-03] MEDS: Diclofenac Sodium Delayed Release 75 mg EC Tab PO SCH (09:29)
[2018-06-03] MEDS ORDERED: Bacitracin Ointment 30 GM TUBE TOP SCH (11:15)
--- NOTE | 2018-06-03 11:19 | CP.PCM.PN ---
Subjective - Date & Time of Evaluation Date of Evaluation: 06/03/18 Time of Evaluation: 11:14 - Subjective Subjective: POD 2 inc pain some numbness in partial s1 distribution excellent strength throughout wound c and d P prob some root irritation secondary to manipulation should be able to go home if can manage stairs PT this am, ss Objective - Vital Signs/Intake and Output Vital Signs (last 24 hours): Temp Pulse Resp BP Pulse Ox 98.2 F 60 18 134/76 100 06/03/18 07:00 06/03/18 07:00 06/03/18 07:00 06/03/18 07:00 06/03/18 07:00 Intake and Output: 06/03/18 06/03/18 06:59 18:59 Intake Total 600 Balance 600 - Medications Medications: Current Medications Atenolol (Tenormin) 50 mg PO DAILY [facility] Last Admin: 06/03/18 09:29 Dose: 50 mg Bacitracin (Bacitracin) 1 gm TOP QD7 [facility] Diclofenac Sodium (Voltaren) 75 mg PO DAILY [facility] Last Admin: 06/03/18 09:29 Dose: 75 mg Hydralazine HCl (Apresoline) 25 mg PO DAILY [facility] Last Admin: 06/03/18 09:29 Dose: 25 mg Hydromorphone HCl (Dilaudid) 0.5 mg IVP Q10M PRN PRN Reason: Pain, moderate (4-7) Hydromorphone HCl (Dilaudid) 2 mg PO Q4H PRN PRN Reason: FOR PAIN Stop: 06/05/18 09:53 Last Admin: 06/03/18 00:21 Dose: 2 mg Hydromorphone/Sodium Chloride (Dilaudid Income Tax Administrator) 6 mg IV Q4H PRN; Protocol PRN Reason: Pain, severe (8-10) Last Admin: 06/02/18 03:13 Dose: 6 mg Levothyroxine Sodium (Synthroid) 75 mcg PO DAILY@0630 [facility] Last Admin: 06/03/18 06:42 Dose: 75 mcg Lisinopril (Zestril) 20 mg PO DAILY [facility] Last Admin: 06/03/18 09:29 Dose: 20 mg Metformin HCl (Glucophage) 500 mg PO DAILY [facility] Last Admin: 06/03/18 09:29 Dose: 500 mg Ondansetron HCl (Zofran Tab) 4 mg PO Q6H PRN PRN Reason: Nausea/Vomiting - Labs Labs: PT 10.8 SECONDS (9.7-12.2) 06/01/18 07:54 INR 1.0 06/01/18 07:54 APTT 39 SECONDS (21-34) H 06/01/18 07:54
[2018-06-03 15:31] VITALS: BP 130/79; PULSE 61; RESP 20; TEMP 98.3; O2SAT 98
== END 2018-06-03 19:37 | DRG 517 ==
LOC: C.9S 06:44 → C.6T 13:41
PROVIDERS: ADMIT Neurological Surgery; ATTEND Neurological Surgery
PROC: 01NB0ZZ Release Lumbar Nerve, Open Approach (ICD-10-PCS; 2018-06-01)
PROC: 01NR0ZZ Release Sacral Nerve, Open Approach (ICD-10-PCS; 2018-06-01)
PROC: 0SW304Z Revision of Internal Fixation Device in Lumbosacral Joint, Open Approach (ICD-10-PCS; 2018-06-01)
PROC: 0SP30AZ Removal of Interbody Fusion Device from Lumbosacral Joint, Open Approach (ICD-10-PCS; principal; 2018-06-01 08:00)
DX: T84.226A Displacement of internal fixation device of vertebrae, initial encounter (principal); Z98.1 Arthrodesis status; M51.27 Other intervertebral disc displacement, lumbosacral region; M51.17 Intervertebral disc disorders with radiculopathy, lumbosacral region; E11.9 Type 2 diabetes mellitus without complications; I10 Essential (primary) hypertension; Z90.49 Acquired absence of other specified parts of digestive tract